=== PATIENT | female | born 1935 | race Caucasian/White ===

== ENCOUNTER 2018-09-01 01:55 | Inpatient (IN) ==
--- NOTE | 2018-09-01 02:28 | Emergency Department Note ---
Disposition Clinical Impression: GI bleed Qualifiers: GI bleed type/associated pathology: unspecified gastrointestinal hemorrhage type Qualified Code(s): K92.2 - Gastrointestinal hemorrhage, unspecified Fall Qualifiers: Encounter type: initial encounter Qualified Code(s): W19.XXXA - Unspecified fall, initial encounter Disposition: Admitted As Inpatient Condition: Good Referrals: NONE,PCP [Primary Care Provider] - Forms: ED Satisfaction Letter General Adult HPI - General Chief complaint: ED Dizziness Stated complaint: lower gi bleed Time Seen by Provider: 09/01/18 01:57 Source: patient, EMS Limitations: no limitations - History of Present Illness Pain Scale: 0 - Related Data Allergies Allergy/AdvReac Type Severity Reaction Status Date / Time No Known Allergies Allergy Verified 02/09/17 22:48 Past Medical History - Past Medical History Medical history: Reports: coronary artery disease, hyperlipidemia, hypertension Psychiatric history: Reports: depression - Social History Smoking Status: Never smoker Smokeless Tobacco Status: No Alcohol use: Reports: none Drug use: Reports: none Physical Exam - General Limitations: no limitations General appearance: alert Course Vital Signs Temperature 97.8 F 09/01/18 02:00 Pulse Rate 71 09/01/18 02:00 Respiratory Rate 18 09/01/18 02:00 Blood Pressure 125/60 09/01/18 02:00 O2 Sat by Pulse Oximetry 100 09/01/18 02:00 Temperature 97.8 F 09/01/18 02:00 Pulse Rate 77 09/01/18 04:16 Respiratory Rate 20 09/01/18 04:16 Blood Pressure 166/76 09/01/18 04:16 O2 Sat by Pulse Oximetry 100 09/01/18 04:16 Oxygen Delivery Oxygen Delivery Room Air Medical Decision Making - Lab Data Result diagrams: 09/01/18 02:19 09/01/18 02:19 Lab Results 09/01/18 09/01/18 09/01/18 Range/Units 02:19 02:19 02:19 WBC 10.9 (4.3-11.1) K/mcL RBC 2.96 L (3.82-4.97) M/mcL Hgb 9.1 L (11.5-15.4) g/dL Hct 27.6 L (35.3-44.9) % MCV 93.2 (83.0-100.0) fL MCH 30.7 (28.0-33.3) pg MCHC 33.0 (31.6-35.5) g/dL RDW 12.9 (11.5-14.5) % Plt Count 230 (140-400) K/mcL MPV 9.5 (9.4-12.4) fL Immature Gran % 0.5 (0-4) % Seg Neutrophils % 72.0 % Lymphocytes % 14.8 % Monocytes % 11.3 % Eosinophils % 0.9 % Basophils % 0.5 % Neutrophils # 7.9 (1.6-8.9) K/mcL Lymphocytes # 1.6 (0.6-4.6) K/mcL Monocytes # 1.2 (0.0-1.3) K/mcL Eosinophils # 0.1 (0.0-0.6) K/mcL Basophils # 0.1 (0.0-0.2) K/mcL PT 12.1 (9.4-12.1) Seconds INR 1.1 APTT 25.7 L (26.0-36.0) Seconds Sodium 136 (136-145) mEq/L Potassium 3.8 (3.5-5.1) mEq/L Chloride 103 (98-107) mEq/L Carbon Dioxide 25 (23-29) mEq/L BUN 27 H (8-23) mg/dL Creatinine 0.85 (0.60-1.20) mg/dL Est GFR ( Amer) > 60 (> 60) Est GFR (Non-Af Amer) > 60 (> 60) BUN/Creatinine Ratio 32 H (6-26) Glucose 136 H (70-105) mg/dL Calculated Osmolality 289 (280-300) Calcium 10.0 (8.6-10.3) mg/dL Stool Occult Blood (Negative) Blood Type Antibody Screen Crossmatch 09/01/18 09/01/18 Range/Units 02:19 02:28 WBC (4.3-11.1) K/mcL RBC (3.82-4.97) M/mcL Hgb (11.5-15.4) g/dL Hct (35.3-44.9) % MCV (83.0-100.0) fL MCH (28.0-33.3) pg MCHC (31.6-35.5) g/dL RDW (11.5-14.5) % Plt Count (140-400) K/mcL MPV (9.4-12.4) fL Immature Gran % (0-4) % Seg Neutrophils % % Lymphocytes % % Monocytes % % Eosinophils % % Basophils % % Neutrophils # (1.6-8.9) K/mcL Lymphocytes # (0.6-4.6) K/mcL Monocytes # (0.0-1.3) K/mcL Eosinophils # (0.0-0.6) K/mcL Basophils # (0.0-0.2) K/mcL PT (9.4-12.1) Seconds INR APTT (26.0-36.0) Seconds Sodium (136-145) mEq/L Potassium (3.5-5.1) mEq/L Chloride (98-107) mEq/L Carbon Dioxide (23-29) mEq/L BUN (8-23) mg/dL Creatinine (0.60-1.20) mg/dL Est GFR ( Amer) (> 60) Est GFR (Non-Af Amer) (> 60) BUN/Creatinine Ratio (6-26) Glucose (70-105) mg/dL Calculated Osmolality (280-300) Calcium (8.6-10.3) mg/dL Stool Occult Blood Positive A (Negative) Blood Type O POSITIVE Antibody Screen NEGATIVE Crossmatch See Detail Attestation Statement - Attestation Attestation: For this encounter, I have reviewed the MANAGER OF INVESTIGATIONS or PA documentation, treatment plan, and medical decision making; and I have had face to face time with this patient. [id number] time provided 03:55: I was alerted that the patient developed substernal chest pain. She has a history of coronary artery disease with 4 stents deployed in 2011. She appears uncomfortable on exam. Repeat ECG obtained showing dynamic interval changes from previous with diffuse ST segment depression suggestive of ischemia. Call placed to the wireless store manager on-call 04:12: The case was discussed with Dr. Eugene Kc the wireless store manager on [employer]. She recommended transfusing of packed red blood cells with concern for demand ischemia and stated urgent PCI is not indicated. The patient will be admitted to the medicine service
[2018-09-01 02:31] LABS: Basophils # 0.1 K/mcL (0.0-0.2); Basophils % 0.5 %; Eosinophils # 0.1 K/mcL (0.0-0.6); Eosinophils % 0.9 %; Hematocrit 27.6 % (35.3-44.9); Hemoglobin 9.1 g/dL (11.5-15.4); Immature Granulocytes % 0.5 % (0-4); Lymphocytes # 1.6 K/mcL (0.6-4.6); Lymphocytes % 14.8 %; Mean Corpuscular Hemoglobin 30.7 pg (28.0-33.3); Mean Corpuscular Volume 93.2 fL (83.0-100.0); Mean Platelet Volume 9.5 fL (9.4-12.4); Monocytes # 1.2 K/mcL (0.0-1.3); Monocytes % 11.3 %; Neutrophils # 7.9 K/mcL (1.6-8.9); Platelet Count 230 K/mcL (140-400); Red Blood Count 2.96 M/mcL (3.82-4.97); Red Cell Distribution Width 12.9 % (11.5-14.5)
[2018-09-01 02:38] LABS: INR 1.1; Prothrombin Time 12.1 Seconds (9.4-12.1)
[2018-09-01 02:41] LABS: Activated Partial Thrombo Time 25.7 Seconds (26.0-36.0)
[2018-09-01] MEDS ORDERED: *HR* FentaNYL (PF) 100 MCG/2 ML VIAL IVP ONE (02:45)
--- NOTE | 2018-09-01 02:48 | Emergency Department Note ---
Disposition Clinical Impression: GI bleed Qualifiers: GI bleed type/associated pathology: unspecified gastrointestinal hemorrhage type Qualified Code(s): K92.2 - Gastrointestinal hemorrhage, unspecified Fall Qualifiers: Encounter type: initial encounter Qualified Code(s): W19.XXXA - Unspecified fall, initial encounter Disposition: Admitted As Inpatient Condition: Good Referrals: NONE,PCP [Primary Care Provider] - Forms: ED Satisfaction Letter GI Bleed HPI - General Chief complaint: ED GI Bleed Stated complaint: lower gi bleed Time Seen by Provider: 09/01/18 01:57 Source: patient, EMS Mode of arrival: private vehicle Limitations: no limitations Nursing Notes Reviewed: Yes Vital Signs Reviewed: Yes - History of Present Illness HPI Narrative: 82-year-old female presents emergency department for evaluation of possible GI bleed. Patient states over the last months she has had intermittent lower abdominal pain that has been crampy in nature. Tonight patient states she had a bowel movement and she noticed that it was loose, black, and had a weird smell. She states she stood up and got dizzy, she states she regained her balance and she was ambulating through the house to get a cup to get a sample she became dizzy again and she spelled forward, she states she had her head on the ground, she denies losing consciousness. She was able to get herself up. She called her family who then called EMS. Patient states only history is a TIA and cervical radiculopathy from a fall last year. She has had 4 stents previously because of an OH in 2011. She denies ever having a bowel movement like this before. She denies anticoagulation use, she is on aspirin. She states that this time she feels fine, she does not have any abdominal pain or anything. Family with her states over the last few months patient has "slow down". She has been taking more naps but they have not noticed any change in mentation, no weight disturbances, no color change, no other issues. Denies drug use, history of the same, liver problems, GI problems. She states "I have been very healthy ra". 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 Denies: nausea, vomiting, epistaxis, fever, chills, headaches, loss of appetite, malaise, easy bruising, rash, other bleeding source, shortness of breath, weakness Treatments Prior to Arrival: none - Related Data Allergies Allergy/AdvReac Type Severity Reaction Status Date / Time No Known Allergies Allergy Verified 02/09/17 22:48 All systems ED: reviewed and negative except as stated. Review of Systems: As Per HPI Constitutional: Denies: fever, chills Eyes: Denies: vision change ENT ED: Denies: ear pain, congestion Cardiovascular: Denies: chest pain, palpitations Respiratory: Denies: cough, dyspnea, wheezes, hemoptysis Gastrointestinal: Reports: abdominal pain, diarrhea, melena. Denies: nausea, vomiting, constipation, hematemesis Genitourinary: Denies: urgency, dysuria Musculoskeletal: Denies: back pain, neck pain Integumentary: Denies: rash Neurological: Denies: headache, weakness, numbness, paresthesias, confusion, abnormal gait Hematological/Lymphatic: Denies: easy bleeding, easy bruising, lymphadenopathy Past Medical History - Past Medical History Attestation: Yes The following information was validated with the patient. Source: patient Medical history: Reports: coronary artery disease, hyperlipidemia, hypertension Psychiatric history: Reports: depression - Social History Smoking Status: Never smoker Smokeless Tobacco Status: No Alcohol use: Reports: none Drug use: Reports: none Physical Exam - General Limitations: no limitations General appearance: alert, in no apparent distress - Head Head exam: atraumatic, normocephalic, normal inspection - Eye Eye exam: Present: normal appearance, PERRL, EOMI - ENT ENT exam: mucous membranes moist - Neck Neck exam: Present: normal inspection, full ROM, trachea midline - Chest Chest inspection: Present: normal inspection, symmetric chest wall rise - Respiratory Respiratory exam: Present: normal lung sounds bilaterally - Cardiovascular Cardiovascular exam: Present: regular rate, normal rhythm, normal heart sounds - Abdominal Exam Abdominal exam: Present: soft, Non-Tender, normal bowel sounds. Absent: tenderness, distention, guarding, rebound, hypoactive bowel sounds, organomegaly, mass - Extremities Exam Extremities exam: Present: normal inspection, full ROM. Absent: tenderness, pedal edema - Back Exam Back exam: Present: normal inspection, full ROM. Absent: tenderness - Neurological Exam Neurological exam: Present: alert, oriented X3, CN II-XII intact. Absent: motor sensory deficit, reflexes normal - Expanded Neurological Exam Patient oriented to: Present: person, place, time Speech: Present: fluid speech Cerebellar function: normal gait Motor strength - LUE: 5/5 Motor strength - RUE: 5/5 Motor strength - LLE: 5/5 Motor strength - RLE: 5/5 Coma Scale Eye Opening: Spontaneous Coma Scale Motor Response: Obeys Commands Coma Scale Verbal Response: Oriented Coma Scale Total: 15 - Psychiatric Psychiatric exam: Present: normal affect, normal mood - Skin Skin exam: Present: warm, dry, intact, normal color, other (abrasions to forehead/nose from fall) Course Course Narrative: Well-developed female in no acute distress. Respirations are easy and even. Patient is pleasant, GCS 15, examination without focal deficit. She does have an abrasion to her forehead as well as the bridge of her nose. There is no tenderness, step-offs with palpation of the head, neck, spine. She denies pain at this time. Lungs are clear, respirations are easy and even. Heart rate regular rhythm. EKG completed reveals a sinus rhythm with a ventricular weight is 64 beats a minute, NH interval turned 5 ms, QTC 426 milliseconds. Abdomen is soft, nontender. Bowel sounds in all quadrants. No masses, organomegaly palpated. Given syncopal episode patient fall, we will obtain a head CT, we will also get basic labs, type and screen, send stool sample. Patient is agreeable plan of care. - Reevaluation(s) Reevaluation #1: Patient resting quietly. She has been under no acute distress. Vital signs have remained stable, patient is perfusing well. CBC does show that her hemoglobin has dropped 3 points in the last 6 weeks, person to her baseline and this does appear to be low for her, her quite edition panel is unremarkable, metabolic panel is unremarkable. Occult stool does show a positive result. This is most likely lower GI bleed. We did initiate a fluid bolus, we will plan admission. Patient and family agreeable to care. She currently still has her head CT pending, once these results are back we will page the hospitalist for admission. Reevaluation #2: Head CT returns on acute abnormality. There is been no further episodes of loose stools since before arrival. Physical exam is unchanged. Patient remains neurologically intact with a GCS of 15, nonfocal. Patient and family notified of all results, they continue to be agreeable to admission to the hospital. We will page hospitalist at this time. Time: 03:39 Reevaluation #3: Patient resting quietly, and around 3:45 AM she started having severe and sudden sharp chest pain radiating into her jaw and arm, she states it is a band around her body. Repeat EKG reveals a sinus rhythm however there is significant dynamic changes in EKG. Pt appears uncomfortable. History of OH and stents previously, we will troponins, page interventional cardiology due to the EKG changes. Time: 04:08 Additional Reevaluation(s): 0440 I did speak with patient and her family, agreeable to transfusion of PRBCs, agreement continues for admission to the hospital. Patient currently is chest pain-free, she states she does have a dull headache, we will give some Tylenol. Patient is no longer diaphoretic, she is laughing and joking with her family. She states she feels considerably better now than what she did half hour ago. We will continue to monitor. Spoke with hospitalist Dr. Robison, case was presented with him as well as the interventional his solutions architect's recommendations, he is agreeable to take the patient on the inpatient unit. - Consultations Consultation #1: Spoke with legal activity adjudicator Dr. Franny Kc, case was presented to her with history and findings of EKG changes, Dr. Kc recommended infusing as ischemic changes most likely related to the hemoglobin and the GI bleeding. We did discuss that hemoglobin upon arrival was 9.1, sudden onset chest pain more hours after arrival with EKG changes several hours after arrival, Dr. Kc continues to state to transfuse to correct the ischemia. I did ask and h er and her solutions architect I consulted pinchers of the EKGs to which she replied no. Time: 04:12 Vital Signs Temperature 97.8 F 09/01/18 02:00 Pulse Rate 71 09/01/18 02:00 Respiratory Rate 18 09/01/18 02:00 Blood Pressure 125/60 09/01/18 02:00 O2 Sat by Pulse Oximetry 100 09/01/18 02:00 Temperature 97.8 F 09/01/18 02:00 Pulse Rate 67 09/01/18 03:21 Respiratory Rate 16 09/01/18 03:21 Blood Pressure 117/53 09/01/18 03:21 O2 Sat by Pulse Oximetry 99 09/01/18 03:21 Oxygen Delivery Oxygen Delivery Room Air GI Bleed - Lab Data Result diagrams: 09/01/18 02:19 09/01/18 02:19 Lab Results 09/01/18 09/01/18 09/01/18 Range/Units 02:19 02:19 02:19 WBC 10.9 (4.3-11.1) K/mcL RBC 2.96 L (3.82-4.97) M/mcL Hgb 9.1 L (11.5-15.4) g/dL Hct 27.6 L (35.3-44.9) % MCV 93.2 (83.0-100.0) fL MCH 30.7 (28.0-33.3) pg MCHC 33.0 (31.6-35.5) g/dL RDW 12.9 (11.5-14.5) % Plt Count 230 (140-400) K/mcL MPV 9.5 (9.4-12.4) fL Immature Gran % 0.5 (0-4) % Seg Neutrophils % 72.0 % Lymphocytes % 14.8 % Monocytes % 11.3 % Eosinophils % 0.9 % Basophils % 0.5 % Neutrophils # 7.9 (1.6-8.9) K/mcL Lymphocytes # 1.6 (0.6-4.6) K/mcL Monocytes # 1.2 (0.0-1.3) K/mcL Eosinophils # 0.1 (0.0-0.6) K/mcL Basophils # 0.1 (0.0-0.2) K/mcL PT 12.1 (9.4-12.1) Seconds INR 1.1 APTT 25.7 L (26.0-36.0) Seconds Sodium 136 (136-145) mEq/L Potassium 3.8 (3.5-5.1) mEq/L Chloride 103 (98-107) mEq/L Carbon Dioxide 25 (23-29) mEq/L BUN 27 H (8-23) mg/dL Creatinine 0.85 (0.60-1.20) mg/dL Est GFR ( Amer) > 60 (> 60) Est GFR (Non-Af Amer) > 60 (> 60) BUN/Creatinine Ratio 32 H (6-26) Glucose 136 H (70-105) mg/dL Calculated Osmolality 289 (280-300) Calcium 10.0 (8.6-10.3) mg/dL Stool Occult Blood (Negative) Blood Type Antibody Screen 09/01/18 09/01/18 Range/Units 02:19 02:28 WBC (4.3-11.1) K/mcL RBC (3.82-4.97) M/mcL Hgb (11.5-15.4) g/dL Hct (35.3-44.9) % MCV (83.0-100.0) fL MCH (28.0-33.3) pg MCHC (31.6-35.5) g/dL RDW (11.5-14.5) % Plt Count (140-400) K/mcL MPV (9.4-12.4) fL Immature Gran % (0-4) % Seg Neutrophils % % Lymphocytes % % Monocytes % % Eosinophils % % Basophils % % Neutrophils # (1.6-8.9) K/mcL Lymphocytes # (0.6-4.6) K/mcL Monocytes # (0.0-1.3) K/mcL Eosinophils # (0.0-0.6) K/mcL Basophils # (0.0-0.2) K/mcL PT (9.4-12.1) Seconds INR APTT (26.0-36.0) Seconds Sodium (136-145) mEq/L Potassium (3.5-5.1) mEq/L Chloride (98-107) mEq/L Carbon Dioxide (23-29) mEq/L BUN (8-23) mg/dL Creatinine (0.60-1.20) mg/dL Est GFR ( Amer) (> 60) Est GFR (Non-Af Amer) (> 60) BUN/Creatinine Ratio (6-26) Glucose (70-105) mg/dL Calculated Osmolality (280-300) Calcium (8.6-10.3) mg/dL Stool Occult Blood Positive A (Negative) Blood Type O POSITIVE Antibody Screen NEGATIVE
[2018-09-01 02:50] LABS: BUN/Creatinine Ratio 32 (6-26); Blood Urea Nitrogen 27 mg/dL (8-23); Carbon Dioxide 25 mEq/L (23-29); Chloride 103 mEq/L (98-107); Glucose 136 mg/dL (70-105); Osmolality,Calculated 289 (280-300); Potassium 3.8 mEq/L (3.5-5.1); Sodium 136 mEq/L (136-145); eGFR For Non-African Americans > 60 (> 60)
[2018-09-01] MEDS ORDERED: 0.9 % Sodium Chloride 1,000 ML IVC ONE (03:04)
[2018-09-01 04:35] LABS: Hematocrit 29.9 % (35.3-44.9); Hemoglobin 9.7 g/dL (11.5-15.4)
[2018-09-01] MEDS ORDERED: 0.9 % Sodium Chloride 250 ML ONE (04:48)
[2018-09-01] MEDS ORDERED: Naloxone 0.4 MG/ML INJ IVP PRN (05:50)
[2018-09-01] MEDS ORDERED: Ondansetron 4 MG/2 ML VIAL IVP PRN (07:38)
[2018-09-01] MEDS ORDERED: D5% in Water 1,000 ML IVC PRN (07:39)
[2018-09-01] MEDS ORDERED: *HR* Dextrose 50 % in Water (Syg) 50 ML SYRINGE IVP PRN (07:39)
[2018-09-01] MEDS ORDERED: Dextrose Gel 15 GM/37.5 ML TUBE PO PRN ×2 (07:39)
[2018-09-01] MEDS ORDERED: Isovue-370 500 ML BOTTLE IVP ONE (09:12)
--- NOTE | 2018-09-01 09:18 | Internal Med History&Physical ---
Date of Encounter: 09/01/18 Time of Encounter: 09:10 Internal Medicine - H&P: HPI Chief complaint: dark bowel movement Admitted From: Home Plans for Post Hospital Care: Home History of present illness: Ms. Kuhn is a 82 year old female PMH of HNT, CAD s/p 4 stents about 4 years ago and HLD. Patient presented to the ED due to dark stool per rectum. She reports that last night she had a large BM of dark foul smelling stool. Reports that after the BM she started to feel lightheaded, dizzy and on her way to the kitchen fell and hit her forehead. She denies lost of consciousness. Denies chest pain. Reports having one episode of bilious, non-bloody vomit. Patient also reports chronic umbilical, intermittent 5/10 dull abdominal pain, denies diarrhea or constipation. Patient reported chest pain while in the ED, which was relieved with tylenol. No chest pain reported during my evaluation. Past Med Surg Social Fam HX - Past Medical History Medical history: coronary artery disease, hyperlipidemia, hypertension, TIA Additional medical history: cardiac stens x4 Psychiatric history: depression - Past Surgical History Surgical History: angioplasty/stent Additional surgical history: cardiac stents x4 - Social History Smoking Status: Never smoker Smokeless Tobacco Status: No Alcohol use: none Drug use: none - Family History Sister Hx Family Cardiac Disorders: Yes (CABG) Internal Medicine - H&P: Meds Allergy/AdvReac Type Severity Reaction Status Date / Time No Known Allergies Allergy Verified 02/09/17 22:48 All Systems PM: A 10-system review of systems was performed and is negative for pertinent findings except as documented above in the HPI. - Constitutional Constitutional: falls, no lethargy, no weakness - EENT Eyes: no blurry vision, no pain - Cardiovascular Cardiovascular ROS IM: lightheadedness, no chest pain, no edema, no orthopnea, no palpitations, no paroxysmal nocturnal dyspnea - Respiratory Respiratory: no cough, no hemoptysis - Gastrointestinal Gastrointestinal: loose stools, melena, vomiting, no abdominal pain, no diarrhea, no nausea - Genitourinary Genitourinary: no dysuria, no flank pain, no urinary frequency, no urinary hesitancy - Musculoskeletal Musculoskeletal ROS IM: no muscle cramps, no numbness, no stiffness - Integumentary Integumentary IM: no erythema, no rash - Neurological Neurological ROS: dizziness, weakness, no focal weakness, no lack of coordination - Psychiatric Psychiatric: no homicidal ideation, no hopelessness - Endocrine Endocrine IM: no flushing, no polyphagia, no polyuria - Hematologic/Lymphatic Hematologic/Lymphatic: no lymphadenopathy - Allergic/Immunologic Allergic/Immunologic: no GI upset with certain foods Additional comments: rest of a 10 review of system negative. - Constitutional Vitals: Temp Pulse Resp BP Pulse Ox 98.3 F 64 17 145/68 98 09/01/18 07:54 09/01/18 07:54 09/01/18 07:54 09/01/18 07:54 09/01/18 07:54 Exam: Vitals: Reviewed General: Alert and oriented x4. In no acute distress. Skin: Normal color, no rash, no lesions. HEENT: dry oral mucosa, EOM, pupils equal, round and reactive. Cardiovascular: RRR, normal S1 & S2, no rubs, murmurs or gallops. Lungs: CTA b/l, no wheezes or crackles. Abdomen: Soft, non-tender, no rigidity. Extremities: No deformity, no edema or tenderness, no joint swelling or clubbing. Neurological: Normal cognition and motor skills. Rest of the physical exam is non contributory Internal Med - H&P Results - Labs CBC & Chem 7: 09/01/18 04:24 09/01/18 02:19 Labs: Short CBC 09/01/18 09/01/18 Range/Units 02:19 04:24 WBC 10.9 (4.3-11.1) K/mcL Hgb 9.1 L 9.7 L (11.5-15.4) g/dL Hct 27.6 L 29.9 L (35.3-44.9) % Plt Count 230 (140-400) K/mcL Neutrophils # 7.9 (1.6-8.9) K/mcL BMP 09/01/18 02:19 Sodium 136 Potassium 3.8 Chloride 103 Carbon Dioxide 25 BUN 27 H Creatinine 0.85 Glucose 136 H Calcium 10.0 Cardiac Enzymes 09/01/18 Range/Units 04:24 Troponin I < 0.03 (< 0.04) ng/mL - Impressions ITS Impressions Head CT 09/01/18 02:09 IMPRESSION: No acute intracranial abnormality. Chronic microvascular ischemic and senescent changes. Stable examination. D/ / Bob Finney MD / Bob Finney MD Interpreting Provider: Bob Finney MD - Diagnostic Studies CT scan - head Status: image reviewed by me (unremarkable. ) - Assessment and plan (1) GI bleed Current Visit: Yes Status: Acute Assessment and plan: she reports one episode of dark stool. Plan: NPO Accu-checks Q6HRs plus lispro sliding scale started on Pantoprazole 40mg/IV BID D5/0.45NS @75 mls/hr Ondanzetron 4mg/IV Q6HR PRN for nausea call or contact centre manager surgeon called recommendations appreciated. LFTs Serial CBC Q8HRs cardiology recommended to transfuse 1prbcs due to chest pain on presentation consider transfusing if Hb <7, or Hct <23 or patient becomes symptomatic NG lavage CT abdomen and pelvis with IV contrast. Qualifiers: GI bleed type/associated pathology: unspecified gastrointestinal hemorrhage type Qualified Code(s): K92.2 - Gastrointestinal hemorrhage, unspecified (2) CAD (coronary artery disease) Current Visit: Yes Status: Chronic Assessment and plan: patient reports having 4 stents inserted about 4 years ago. On aspirin and Plavix. Hold medications due to GI bleed. Qualifiers: Coronary Disease-Associated Artery/Lesion type: unspecified vessel or lesion type [place] vs. transplanted heart: unspecified whether [place] or transplanted heart Associated angina: angina presence unspecified Qualified Code(s): I25.10 - Atherosclerotic heart disease of [place] coronary artery without angina pectoris (3) HLD (hyperlipidemia) Current Visit: Yes Status: Chronic Assessment and plan: On statin. Held as patient is NPO. Qualifiers: Hyperlipidemia type: unspecified Qualified Code(s): E78.5 - Hyperlipidemia, unspecified (4) HTN (hypertension) Current Visit: Yes Status: Chronic Assessment and plan: patient reports being on Isosorbide. will resume antihypertensive medication after pharmacy verification. Qualifiers: Hypertension type: unspecified Qualified Code(s): I10 - Essential (primary) hypertension (5) Fall Current Visit: Yes Status: Chronic Assessment and plan: Possible due to orthostatic due to GI bleed. Head CT unremarkable. fall precautions. Qualifiers: Encounter type: initial encounter Qualified Code(s): W19.XXXA - Unspecified fall, initial encounter (6) DVT prophylaxis Current Visit: Yes Status: Chronic Assessment and plan: no chemical dvt prophylaxis due to GI bleed. mechanical DVT prophylaxis. (7) Chest pain Current Visit: Yes Status: Chronic Assessment and plan: atypical chest pain. Plan telemetry monitoring cardiology was consulted from the Ed serial trops nitroglycerin 0.4mg SubL Q5mins X3 for chest pain Qualifiers: Chest pain type: unspecified Qualified Code(s): R07.9 - Chest pain, unspecified - Time Spent With Patient Total time spent is greater than 50% in coordination of care (as documented) at patient's floor/unit and/or counseling patient: Greater than 35 minutes (50)
[2018-09-01] MEDS ORDERED: Nitroglycerin 0.4 MG TAB.SUBL SL PRN (09:28)
--- NOTE | 2018-09-01 09:28 | Cardiology Consult Note ---
Addendum entered and electronically signed by Franny cK MD 09/01/18 13:51: I have personally performed a face to face evaluation on this patient. I have reviewed and agree with the care plan. History and Exam by me shows: Atypical CP in setting of acute GI bleed. No significant EKG changes noted. Reviewed all EKGs performed in ED. Pt has rate dependent LBBB. Previously documented to have LBBB so not new finding. Recommend treatment of GI bleed per primary service. Transfuse to keep Hb near 10. OK to hold Plavix- last stents in 2011. Original Note: Date of Encounter: 09/01/18 Time of Encounter: 08:00 Assessment and Plan (1) Chest pain Current Visit: Yes Status: Chronic Complaint of atypical chest pain in the ED in the setting of GI bleed/anemia. Chest pain is right-sided and is now pain free. EKG reviewed. EKG shows sinus rhythm with left bundle branch block. Patient with known history of left bundle branch block as seen on stress test completed in June last year. This is not a new finding. Troponins are negative. No further cardiac testing recommended at this time. Continue treatment of GI bleed. Please call with questions. Qualifiers: Chest pain type: unspecified Qualified Code(s): R07.9 - Chest pain, unspecified (2) CAD (coronary artery disease) Current Visit: Yes Status: Chronic History of PCI to the LAD and RCA in 2011. Okay to hold Plavix in the setting of GI bleed. Would continue aspirin if able. She is pending colonoscopy today. Continue statin and beta bib. Qualifiers: Coronary Disease-Associated Artery/Lesion type: unspecified vessel or lesion type [place] vs. transplanted heart: unspecified whether [place] or transplanted heart Associated angina: angina presence unspecified Qualified Code(s): I25.10 - Atherosclerotic heart disease of [place] coronary artery without angina pectoris Discussion w patient/family: The assessment and plan as outlined above was discussed with the patient and/or family members who expressed understanding and agreement. All questions were answered. Thank you for involving us in the care of your patient. Please call with any questions. History of Present Illness Consult date: 09/01/18 Requesting physician: Elio Bell Consult reason: Abnormal EKG, chest pain Chief complaint: Black stools History of present illness: Ms. Kuhn is a 82 year old female with PMH significant for CAD s/p PCI in 2011, HTN, HLD, who resented with c/o black stols. While she was being worked up in the ED she developed right sided chest discomfort. He states that she has not had this discomfort before. She was given Tylenol with relief of her pain. Cardiology was consulted due to concern for changes on her EKG. On my exam she is chest pain-free. She denies shortness of breath or palpitations. She denies nausea, vomiting, diaphoresis. Prior to this she states she was active and not having any chest pain. She states she was taking aspirin at home but was unsure about taking Plavix. According to her last cardiology office visit she was still taking Plavix 75 mg daily. Prior studies: Lexiscan nuclear stress test 06/26/2018: Gated EF greater than 70%. ECG nondiagnostic due to baseline left bundle-branch block. Imaging was negative for ischemia or prior infarct. Carotid duplex 06/26/2018: Right and left ICA moderate stenoses, 40-59%. Echocardiogram 06/28/2016: LVEF 60%. Normal LV, RV size and function. Limited study. Valves not assessed. Left heart catheterization 02/16/2012: LAD 99% proximal stenosis and 99% mid stenosis. A drug-eluting stent was placed in the proximal portion and a bare- metal stent placed in the midportion. PTCA was performed to the mid to distal LAD with a postprocedural stenosis of 50%. Circumflex demonstrated a 40% proximal stenosis. There was a 60% stenosis in the proximal first obtuse marginal branch. The right coronary artery demonstrated a 80% proximal stenosis and a 99% mid stenosis. A drug-eluting stent was placed in the proximal and midportion of the right coronary artery. Past Med Surg Social Fam HX - Past Medical History Medical history: coronary artery disease, hyperlipidemia, hypertension, TIA Additional medical history: cardiac stens x4 Psychiatric history: depression - Past Surgical History Surgical History: angioplasty/stent Additional surgical history: cardiac stents x4 - Social History Smoking Status: Never smoker Smokeless Tobacco Status: No Alcohol use: none Drug use: none - Family History Sister Hx Family Cardiac Disorders: Yes (CABG) Medications and Allergies Allergy/AdvReac Type Severity Reaction Status Date / Time No Known Allergies Allergy Verified 02/09/17 22:48 All Systems Review: The remainder of the systems were reviewed and are negative Physical Examination Vital Signs, Last 4 Hours Temp Pulse Resp BP Pulse Ox 09/01/18 07:54 98.3 F 64 17 145/68 98 General: Conversant, No Apparent Distress HEENT: Atraumatic, Normocephaly, Mucus Membranes Moist Neck: No JVD, Normal carotid pulses Cardiac: Reg Rate and Rhythm, Normal S1 and S2, No Murmur Lungs: Normal Breath Sounds, No Wheeze, Rales, Rhonchi Neuro: Alert and responsive, No focal deficits noted Abdomen: Soft, Non-Tender Skin: No rashes noted on visualized skin Musculoskeletal: No Chest Wall Tenderness Extremities: No Clubbing, No Cyanosis, No Edema, Normal Pulses Results 09/01/18 04:24 09/01/18 02:19 Lab Results 09/01/18 09/01/18 09/01/18 02:19 02:19 02:19 WBC 10.9 Hgb 9.1 L Hct 27.6 L Plt Count 230 INR 1.1 APTT 25.7 L Sodium 136 Potassium 3.8 Chloride 103 Carbon Dioxide 25 BUN 27 H Creatinine 0.85 Glucose 136 H Calcium 10.0 Troponin I 09/01/18 09/01/18 04:24 04:24 WBC Hgb 9.7 L Hct 29.9 L Plt Count INR APTT Sodium Potassium Chloride Carbon Dioxide BUN Creatinine Glucose Calcium Troponin I < 0.03 - Imaging and Cardiology Stress Test: report reviewed Echo: report reviewed - EKG Interpretation EKG results cardiology: personally reviewed Consult Discharge Plan - Plan Referrals: NONE,PCP [Primary Care Provider] -
[2018-09-01 10:05] LABS: Basophils # 0.1 K/mcL (0.0-0.2); Basophils % 0.4 %; Eosinophils # 0.1 K/mcL (0.0-0.6); Eosinophils % 0.8 %; Hematocrit 31.2 % (35.3-44.9); Hemoglobin 10.5 g/dL (11.5-15.4); Immature Granulocytes % 0.3 % (0-4); Lymphocytes # 2.5 K/mcL (0.6-4.6); Lymphocytes % 20.8 %; Mean Corpuscular HGB Conc 33.7 g/dL (31.6-35.5); Mean Corpuscular Hemoglobin 30.8 pg (28.0-33.3); Mean Corpuscular Volume 91.5 fL (83.0-100.0); Mean Platelet Volume 9.7 fL (9.4-12.4); Monocytes # 1.3 K/mcL (0.0-1.3); Neutrophils # 7.9 K/mcL (1.6-8.9); Platelet Count 189 K/mcL (140-400); Red Blood Count 3.41 M/mcL (3.82-4.97); Segmented Neutrophils % 66.7 %
[2018-09-01 10:17] LABS: Albumin 3.1 g/dL (3.5-5.7); Albumin/Globulin Ratio 1.4 (1.1-2.2); Bilirubin,Direct 0.1 mg/dL (0.0-0.2); Bilirubin,Indirect 0.3 mg/dL (0.0-1.2); Bilirubin,Total 0.4 mg/dL (0.3-1.0); Globulin 2.2 g/dL (2.4-3.5); Total Protein 5.3 g/dL (6.4-8.9)
[2018-09-01] MEDS: D5% in 0.45% NACL 1,000 ML IVC SCH (10:24)
[2018-09-01 14:14] LABS: Bilirubin,Urine Negative (Negative); Blood,Urine Negative (Negative); Clarity,Urine Cloudy (Clear); Color,Urine Yellow (Yellow); Glucose,Urine (UA) Normal (Normal); Ketones,Urine Negative (Negative); Leukocyte Esterase,Urine Small (Negative); Nitrite,Urine Negative (Negative); Protein,Urine Negative (Neg-Trace); Specific Gravity,Urine 1.024 (1.010-1.025); Urobilinogen,Urine Normal (Normal)
[2018-09-01 14:22] LABS: Bacteria,Urine Many per hpf (None-Few); Hyaline Casts,Urine None Seen per lpf (None-Few); RBC,Urine 0-3 per hpf (0-3); Squamous Epithelial Cell,Urine Many per lpf (None-Few)
[2018-09-01] MEDS: Insulin LISPRO 300 UNITS/3 ML VIAL SQ SCH ×2 (14:59→17:22)
[2018-09-01 17:49] LABS: Basophils # 0.1 K/mcL (0.0-0.2); Basophils % 0.6 %; Eosinophils # 0.1 K/mcL (0.0-0.6); Eosinophils % 1.2 %; Hematocrit 33.2 % (35.3-44.9); Hemoglobin 11.3 g/dL (11.5-15.4); Immature Granulocytes % 0.3 % (0-4); Lymphocytes # 2.3 K/mcL (0.6-4.6); Lymphocytes % 22.9 %; Mean Corpuscular Hemoglobin 31.3 pg (28.0-33.3); Mean Platelet Volume 9.6 fL (9.4-12.4); Monocytes % 9.3 %; Neutrophils # 6.7 K/mcL (1.6-8.9); Platelet Count 214 K/mcL (140-400); Red Blood Count 3.61 M/mcL (3.82-4.97); Red Cell Distribution Width 13.2 % (11.5-14.5); Segmented Neutrophils % 65.7 %
[2018-09-01] MEDS: Pantoprazole 40 MG VIAL IVP SCH (17:54)
[2018-09-02] MEDS: Insulin LISPRO 300 UNITS/3 ML VIAL SQ SCH ×2 (00:03→06:11)
[2018-09-02] MEDS: Pantoprazole 40 MG VIAL IVP SCH ×2 (06:10→18:26)
[2018-09-02] MEDS: D5% in 0.45% NACL 1,000 ML IVC SCH (06:11)
[2018-09-02] MEDS ORDERED: *HR* Midazolam HCl 5 MG/5 ML VIAL IVP ONE (10:05)
[2018-09-02] MEDS ORDERED: *HR* FentaNYL (PF) 100 MCG/2 ML VIAL ONE (10:05)
[2018-09-02] MEDS ORDERED: Simethicone 40 MG/0.6 ML MLS IR ONE (10:35)
[2018-09-02] MEDS ORDERED: *HR* FentaNYL (PF) 100 MCG/2 ML VIAL IVP ONE (10:35)
--- NOTE | 2018-09-02 10:35 | Pre-Sedation Evaluation ---
Pre-sedation evaluation - Pre-sedation checklist Date of procedure: 09/02/18 Procedure: double Recent Vitals: Last Vital Signs Temp 98.3 F 09/02/18 10:24 Pulse 70 09/02/18 10:32 Resp 18 09/02/18 10:32 BP 164/78 09/02/18 10:32 Pulse Ox 98 09/02/18 10:32 H&P (including ROS) documented in medical record: Yes Previous reaction to sedatives/anesthetics: No Dietary Status: NPO after Midnight Dentition: dentures removed ASA Classification *see protocol: CLASS III-Severe systemic disease Plan of Care: Pt appropriate candidate for procedure/moderate/conscious sedation, Risks/benefits of procedure/sedation discussed w/ patient/family
[2018-09-02] MEDS: Tetracaine/Benzocaine/Butamben 1 SPRAY AEROSOL MM ONE (10:45)
[2018-09-02] MEDS: *HR* Midazolam HCl 5 MG/5 ML VIAL IVP ONE ×3 (10:45→11:19)
[2018-09-02] MEDS ORDERED: 0.9 % Sodium Chloride 1,000 ML IVC SCH (11:45)
--- NOTE | 2018-09-02 13:51 | General Surgery Consult Note ---
Date of Encounter: 09/01/18 Time of Encounter: 16:30 Assessment and Plan (1) GI bleed Current Visit: Yes Status: Acute 82F with LGIB causing hemodynamic symptoms; NPO IVF bowel prep EGD, colonosocpy on 09/02 trend h/h hold antiplatelets Qualifiers: GI bleed type/associated pathology: unspecified gastrointestinal hemorrhage type Qualified Code(s): K92.2 - Gastrointestinal hemorrhage, unspecified History of Present Illness Consult date: 09/02/18 Reason for consult: other (LGIB) History of present illness: 82F CAD s/p 4 stents about 4 years ago and HLD, currently on plavix who presetns with dark stool per rectum. She reports that last night she had a large BM of dark foul smelling stool. Afterwards she reports feeling lightheaded, dizzy and on her way to the kitchen fell and hit her forehead. She denies lost of consciousness. Denies chest pain. When questioned further she does report multip le episodes of dark, tarry stools. No significant family history of colon cancer. No changes in bowel habits nor caliber. No reports of unexplained weight loss or exhaustion. She has never had a prior colonoscopy. Past Med Surg Social Fam HX - Past Medical History Medical history: coronary artery disease, hyperlipidemia, hypertension, TIA Additional medical history: cardiac stens x4 Psychiatric history: depression - Past Surgical History Surgical History: angioplasty/stent Additional surgical history: cardiac stents x4 - Social History Smoking Status: Never smoker Smokeless Tobacco Status: No Alcohol use: none Drug use: none - Family History Sister Hx Family Cardiac Disorders: Yes (CABG) Medications and Allergies Atorvastatin [Lipitor] 80 mg PO DAILY 09/02/18 [History] Citalopram [CeleXA] 40 mg PO DAILY 09/02/18 [History] Clopidogrel [Plavix] 75 mg PO DAILY 09/02/18 [History] Isosorbide MONOnitrate (24 HR) [Imdur] 30 mg PO DAILY 09/02/18 [History] Metoprolol Tartrate [Lopressor] 25 mg PO BID 09/02/18 [History] Allergy/AdvReac Type Severity Reaction Status Date / Time No Known Allergies Allergy Verified 02/09/17 22:48 Review of Systems All systems PM: 12 point ROS negative besides HPI findings General Surgery Exam Initial Vital Signs Temp Pulse Resp BP Pulse Ox 97.8 F 71 18 125/60 100 09/01/18 02:00 09/01/18 02:00 09/01/18 02:00 09/01/18 02:00 09/01/18 02:00 - General physical appearance well nourished, no distress - Eyes normal ocular movement - ENT normal mucosa, no hearing loss, normocephalic - Neck no masses - Respiratory normal expansion, normal respiratory effort - Cardiovascular Cardiovascular exam: Present: RRR - Abdomen Abdomen general surgery: Present: soft, non tender - Integumentary Integumentary general surgery: Present: warm and dry, no abnormal pigmentation - Neurologic Present: CN 2-12 grossly intact - Musculoskeletal Present: normal posture - Psychiatric Psychiatric general surgery: Present: A&Ox3 Exam Initial Vital Signs Temp Pulse Resp BP Pulse Ox 97.8 F 71 18 125/60 100 09/01/18 02:00 09/01/18 02:00 09/01/18 02:00 09/01/18 02:00 09/01/18 02:00 Results - Labs 09/01/18 17:26 09/01/18 02:19 Abnormal lab results RBC 3.61 M/mcL (3.82-4.97) L 09/01/18 17:26 Hgb 11.3 g/dL (11.5-15.4) L 09/01/18 17:26 Hct 33.2 % (35.3-44.9) L 09/01/18 17:26 APTT 25.7 Seconds (26.0-36.0) L 09/01/18 02:19 BUN 27 mg/dL (8-23) H 09/01/18 02:19 BUN/Creatinine Ratio 32 (6-26) H 09/01/18 02:19 Glucose 136 mg/dL (70-105) H 09/01/18 02:19 Serum Total Protein 5.3 g/dL (6.4-8.9) L 09/01/18 09:42 Albumin 3.1 g/dL (3.5-5.7) L 09/01/18 09:42 Globulin 2.2 g/dL (2.4-3.5) L 09/01/18 09:42 Urine Clarity Cloudy (Clear) A 09/01/18 13:34 Ur Leukocyte Esterase Small (Negative) H 09/01/18 13:34 Urine Microscopic WBC 5-15 per hpf (0-3) H 09/01/18 13:34 Ur Squamous Epith Cells Many per lpf (None-Few) H 09/01/18 13:34 Urine Bacteria Many per hpf (None-Few) H 09/01/18 13:34 Stool Occult Blood Positive (Negative) A 09/01/18 02:28 All other labs normal. - Imaging CT scan - abdomen: report reviewed, image reviewed CT scan - pelvis: report reviewed, image reviewed Consult Discharge Plan - Plan Referrals: NONE,PCP [Primary Care Provider] -
--- NOTE | 2018-09-02 13:55 | General Surgery Progress Note ---
Date of Encounter: 09/02/18 Time of Encounter: 08:00 - Assessment and Plan (1) GI bleed Current Visit: Yes Status: Acute 82F with LGIB s/p EGD and colonoscopy; found to have sigmoid polyp, diverticulosis, and a bleeding mass in the cecum; unable to remove completely; biopsies pending diet as tolerated cardiac clearance/risk stratification will plan for surgical intervention this week, ideally after final pathology returns for sigmoid polyp Qualifiers: GI bleed type/associated pathology: unspecified gastrointestinal hemorrhage type Qualified Code(s): K92.2 - Gastrointestinal hemorrhage, unspecified Subjective Patient reports: no new complaints, afebrile Objective Vital Signs - Last 8 Hours Temp Pulse Resp BP Pulse Ox 09/02/18 13:05 97.4 F L 59 16 145/64 99 09/02/18 12:37 97.7 F 64 16 132/58 97 09/02/18 11:42 74 18 157/86 98 09/02/18 11:37 80 16 176/87 97 09/02/18 11:32 68 18 159/54 100 09/02/18 11:27 70 16 169/71 100 09/02/18 11:22 76 18 165/78 98 09/02/18 11:17 75 16 174/72 100 09/02/18 11:12 87 16 138/51 100 09/02/18 11:07 75 18 145/76 100 09/02/18 11:02 75 16 128/69 99 09/02/18 10:57 93 16 176/87 95 09/02/18 10:52 83 16 186/70 95 09/02/18 10:47 87 18 167/85 97 09/02/18 10:42 86 16 174/78 98 09/02/18 10:37 86 16 176/86 98 09/02/18 10:32 70 18 164/78 98 09/02/18 10:24 98.3 F 71 18 184/79 99 09/02/18 07:13 98.6 F 76 16 126/63 97 Intake and Output 09/01/18 09/02/18 09/02/18 23:59 07:59 15:59 Intake Total 1000 / 1000 550 / 550 Output Total 600 / 600 225 / 225 Balance -600 / -600 775 / 775 550 / 550 Intake: IV Fluids 1000 / 1000 550 / 550 0.9 % Sodium Chloride 1,000 ML 550 / 550 @ 50 mls/hr IVC .Q20H JESSICA Rx#: [id number] D5% And 0.45% Nacl 1000 Ml Bag 1000 / 1000 1,000 ML @ 50 mls/hr IVC .Q20H JESSICA Rx#:[id number] Output: Urine 600 / 600 225 / 225 Other: Stool Size Small Stool Consistency loose liquid Stool Color Bright Red Blood Bright Red Blood Dark Red Blood Weight 41.5 kg Blood Glucose* 120 106 Patient Weight 09/02/18 23:59 Weight 41.5 kg - General physical appearance no distress - Respiratory normal expansion - Cardiovascular Cardiovascular exam: Present: RRR - Abdomen Abdomen: Present: soft, non tender - Integumentary no rash - Neurologic CN 2-12 grossly intact - Psychiatric oriented to time, oriented to person, oriented to place - Labs 09/01/18 17:26 09/01/18 02:19 - VTE Documentation of Mechanical Device: Intermittent pneumatic compression device Consult Discharge Plan - Plan Referrals: NONE,PCP [Primary Care Provider] -
[2018-09-02 14:34] LABS: Hematocrit 34.4 % (35.3-44.9); Hemoglobin 11.3 g/dL (11.5-15.4)
--- NOTE | 2018-09-02 15:46 | Electrocardiograph Report ---
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
--- NOTE | 2018-09-02 15:47 | Electrocardiograph Report ---
[place] [address] Test Date: 2018-09-01 Pat Name: Polina Kuhn Department: EXAM15 Room: 2A Gender: F Second Operator: : 1935 Requested By: Mabel Doss Order Number: [id number] Reading MD: José Luis Alcantar Measurements Intervals [place] Rate: 80 P: 83 [place]: 183 QRS: 5 QRSD: 129 T: 25 QT: 416 QTc: 480 Interpretive Statements Sinus rhythm Left bundle branch block Electronically Signed On 09-02-2018 15:45:52 EST by José Luis Alcantar
--- NOTE | 2018-09-02 15:47 | Electrocardiograph Report ---
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
--- NOTE | 2018-09-02 18:21 | Internal Med Progress Note ---
Hospitalist Progress Note - Encounter Date of Encounter: 09/02/18 Time of Encounter: 15:00 - Subjective Interval History: SUBJECTIVE: The patient feels good. She had upper and lower endoscopy today. Complains of mild abdominal pain in lower quadrants. Without nausea or vomiting. Denies chest pain. Denies difficulty breathing, coughing and wheezing. She has normal urination. OBJECTIVE: Skin: Free of rash and discoloration. ENMT: Oral/pharyngeal mucosa is normal in appearance. Eyes: Sclera is white. There is no discharge from eyes. Respiratory: Normal breath sounds; no crackles or wheezes. CV: Heart is regular; no gallop or murmur. GI: Abdomen is soft and mildly tender in lower quadrants. There is no palpable mass or visceromegaly. Neuro: There is no focal deficits. ADDITIONAL DATA: Your blood testing from yesterday was okay. ASSESSMENT AND PLAN: GI bleeding/colonic mass in cecum. See notes from general surgery. The patient will likely undergo partial colon resection this week, after getting clearance from cardiology. Meanwhile, I decided to stop her Plavix. We are waiting for results from biopsies. Coronary artery disease. Seems to be stable. To continue Lopressor with Lipitor and Imdur. I put her Plavix on hold today. Hypertension/hyperlipidemia. Stable/controlled. To continue Lopressor and Lipitor. - Exam Vitals: Temp Pulse Resp BP Pulse Ox 97.4 F L 75 18 136/80 98 09/02/18 13:05 09/02/18 15:30 09/02/18 15:30 09/02/18 15:30 09/02/18 15:30 Exam: xx - Assessment and Plan (1) GI bleed Current Visit: Yes Status: Acute (2) Colonic mass Current Visit: Yes Status: Acute (3) CAD (coronary artery disease) Current Visit: Yes Status: Chronic (4) HTN (hypertension) Current Visit: Yes Status: Chronic (5) HLD (hyperlipidemia) Current Visit: Yes Status: Chronic - Time Spent with Patient Total time spent is greater than 50% in coordination of care (as documented) at patient's floor/unit and/or counseling patient: 25 - 35 minutes Plan of Care Discussed with: patient Internal Medicine: Result - Labs CBC & Chem 7: 09/02/18 14:14 09/01/18 02:19 Labs: Short CBC 09/02/18 Range/Units 14:14 Hgb 11.3 L (11.5-15.4) g/dL Hct 34.4 L (35.3-44.9) % - ABG Interpretation ABG results: PT/INR, D-dimer PT 12.1 Seconds (9.4-12.1) 09/01/18 02:19 - Impressions Impressions Abdomen/Pelvis CT 09/01/18 09:12 IMPRESSION: 2.4 centimeter possible mass within the cecum. 1.2 centimeter lymph node in the ileocecal mesentery. 5 centimeter left adnexal cyst. RECOMMENDATIONS: Gastroenterology consultation. Nonemergent pelvic ultrasound. D/ / 09/01/2018 15:50:19 Michael Palmer MD / Liza Matta Interpreting Provider: Michael Palmer MD - VTE Documentation of Mechanical Device: Intermittent pneumatic compression device Consult Discharge Plan - Plan Referrals: NONE,PCP [Primary Care Provider] - (1) GI bleed Qualifiers: GI bleed type/associated pathology: unspecified gastrointestinal hemorrhage type Qualified Code(s): K92.2 - Gastrointestinal hemorrhage, unspecified (3) CAD (coronary artery disease) Qualifiers: Coronary Disease-Associated Artery/Lesion type: [place] artery [place] vs. transplanted heart: [place] heart Associated angina: without angina Qualified Code(s): I25.10 - Atherosclerotic heart disease of [place] coronary artery without angina pectoris (4) HTN (hypertension) Qualifiers: Hypertension type: unspecified Qualified Code(s): I10 - Essential (primary) hypertension (5) HLD (hyperlipidemia) Qualifiers: Hyperlipidemia type: unspecified Qualified Code(s): E78.5 - Hyperlipidemia, unspecified
[2018-09-03] MEDS: D5% in 0.45% NACL 1,000 ML IVC SCH (05:05)
[2018-09-03] MEDS: Pantoprazole 40 MG VIAL IVP SCH ×2 (05:05→17:06)
[2018-09-03] MEDS ORDERED: Lidocaine -MPF 1% 5 ML AMPUL INFILT ONE (08:16)
[2018-09-03] MEDS: Isosorbide MONOnitrate (24 HR) 30 MG TAB.ER.24H PO SCH (08:47)
--- NOTE | 2018-09-03 09:28 | General Surgery Progress Note ---
Date of Encounter: 09/03/18 Time of Encounter: 09:27 - Assessment and Plan (1) GI bleed Current Visit: Yes Status: Acute 82F with LGIB s/p EGD and colonoscopy; found to have sigmoid polyp, diverticulosis, and a bleeding mass in the cecum; unable to remove completely; biopsies pending diet as tolerated cardiac clearance/risk stratification will plan for surgical intervention this week (most likely or Monday due to scheduling), ideally after final pathology returns for sigmoid polyp order cea order cxr Qualifiers: GI bleed type/associated pathology: unspecified gastrointestinal hemorrhage type Qualified Code(s): K92.2 - Gastrointestinal hemorrhage, unspecified Subjective Patient reports: no new complaints, feels better, bowel movement, blood in stool, afebrile Objective Vital Signs - Last 8 Hours Temp Pulse Resp BP Pulse Ox 09/03/18 07:17 98.2 F 68 18 155/69 97 09/03/18 03:55 98.6 F 69 18 171/69 99 Intake and Output 09/02/18 09/03/18 09/03/18 23:59 07:59 15:59 Intake Total 1000 / 1000 Output Total 200 / 200 500 / 500 Balance -200 / -200 500 / 500 Intake: IV Fluids 1000 / 1000 D5% And 0.45% Nacl 1000 Ml Bag 1000 / 1000 1,000 ML @ 50 mls/hr IVC .Q20H JESSICA Rx#:[id number] Output: Urine 200 / 200 500 / 500 Other: Stool Size Moderate Stool Consistency liquid soft Stool Color Black Dark Red Blood # Voids 1 Weight 53.1 kg Blood Glucose* 113 Patient Weight 09/03/18 23:59 Weight 53.1 kg - General physical appearance no distress - Eyes normal ocular movement - ENT normocephalic - Respiratory normal expansion, normal respiratory effort - Cardiovascular Cardiovascular exam: Present: RRR - Abdomen Abdomen: Present: soft, non tender - Integumentary no rash - Neurologic CN 2-12 grossly intact - Musculoskeletal normal posture - Psychiatric oriented to time, oriented to person, oriented to place - Labs 09/02/18 14:14 09/01/18 02:19 - VTE Documentation of Mechanical Device: Intermittent pneumatic compression device Consult Discharge Plan - Plan Referrals: NONE,PCP [Primary Care Provider] -
[2018-09-03 09:38] LABS: BUN/Creatinine Ratio 9 (6-26); Blood Urea Nitrogen 8 mg/dL (8-23); Calcium 9.7 mg/dL (8.6-10.3); Carbon Dioxide 26 mEq/L (23-29); Chloride 106 mEq/L (98-107); Glucose 130 mg/dL (70-105); Magnesium 1.8 mg/dL (1.6-2.6); Osmolality,Calculated 284 (280-300); Phosphorous 2.4 mg/dL (2.7-4.5); Sodium 137 mEq/L (136-145); eGFR For Non-African Americans > 60 (> 60)
[2018-09-03 10:02] LABS: Carcinoembryonic Antigen 1.9 ng/mL (Less than 5.0)
--- NOTE | 2018-09-03 10:51 | Cardiology Progress Note ---
Date of Encounter: 09/03/18 Time of Encounter: 10:44 Assessment and Plan (1) Pre-operative cardiovascular examination Current Visit: Yes Status: Acute Pre-operative risk assessment prior to surgery for cecal mass. History of CAD with PCI to LAD in 2011. Recent testing: Stress test 06/2018- Negative for ischemia or infarct. Gated EF 70%. TTE 2016- preserved EF. No significant valvular disease. Atypical CP described in ED with GI bleed. Troponin negative. EKG with SR with LBBB, not new. Prior to this event she was able to complete 4 mets of activity without cardiac symptoms. She was found to have bleeding cecal mass requiring surgical intervention. Patient is intermediate risk for procedure. No further cardiac testing warranted at this time. Recommend statin and bb fani-operatively and asa if able from surgery standpoint. Okay to discontinue plavix from cardiology standpoint. Call with questions. (2) Chest pain Current Visit: Yes Status: Chronic Complaint of atypical chest pain in the ED in the setting of GI bleed/anemia. Chest pain is right-sided and is now pain free. EKG reviewed. EKG shows sinus rhythm with left bundle branch block. Patient with known history of left bundle branch block as seen on stress test completed in June last year. This is not a new finding. Troponins are negative. Stress test 06/2018 negative for ischemia or infarct. No further cardiac testing recommended at this time. Continue treatment of GI bleed. Qualifiers: Chest pain type: unspecified Qualified Code(s): R07.9 - Chest pain, unspecified (3) CAD (coronary artery disease) Current Visit: Yes Status: Chronic History of PCI to the LAD and RCA in 2011. Okay to hold Plavix in the setting of GI bleed. Would continue aspirin if able. She is pending colonoscopy today. Continue statin and beta bib. Qualifiers: Coronary Disease-Associated Artery/Lesion type: [place] artery [place] vs. t ransplanted heart: [place] heart Associated angina: without angina Qualified Code(s): I25.10 - Atherosclerotic heart disease of [place] coronary artery without angina pectoris Discussion w patient/family: The assessment and plan as outlined above was discussed with the patient and/or family members who expressed understanding and agreement. All questions were answered. Thank you for involving us in the care of your patient. Please call with any questions. Subjective Principal diagnosis: cecal mass Interval history: Cardiology asked to evaluate patient prior to surgery for pre-operative risk assessment. We were previously asked to see patient this admission for abnormal EKG. After further review patient was seen to have rate dependent LBBB and this was not a new finding. She did describe atypical chest pain in the ED. C/o right chest wall pain in relation to abdominal pain and black stools. Pain resolved and no further testing recommended. Troponin was negative. Objective Vital Signs, Last 4 Hours Temp Pulse Resp BP Pulse Ox 09/03/18 07:17 98.2 F 68 18 155/69 97 Results 09/02/18 14:14 09/03/18 08:55 Lab Results 09/02/18 09/03/18 14:14 08:55 Hgb 11.3 L Hct 34.4 L Sodium 137 Potassium 4.0 Chloride 106 Carbon Dioxide 26 BUN 8 Creatinine 0.88 Glucose 130 H Calcium 9.7 Magnesium 1.8 - Imaging and Cardiology Echo: report reviewed - EKG Interpretation EKG results cardiology: personally reviewed - VTE Documentation of Mechanical Device: Intermittent pneumatic compression device Consult Discharge Plan - Plan Referrals: NONE,PCP [Primary Care Provider] -
[2018-09-03] MEDS ORDERED: D10% in Water 500 ML IVC PRN (12:58)
[2018-09-03] MEDS ORDERED: Clinimix E 5%-15% SOLUTION 2,000 ML, Parenteral Amino Acid 10% 0 ML with MVI, adult wi... IVC SCH (17:00)
--- NOTE | 2018-09-03 22:21 | Internal Med Progress Note ---
Hospitalist Progress Note - Encounter Date of Encounter: 09/03/18 Time of Encounter: 15:00 - Subjective Interval History: SUBJECTIVE: The patient feels fine. Denies chest pain and difficulty breathing. Denies coughing and wheezing. Denies abdominal pain, nausea and vomiting. She has normal urination. OBJECTIVE: Skin: Free of rash and discoloration. ENMT: Oral/pharyngeal mucosa is normal in appearance. Eyes: Sclera is white. There is no discharge from eyes. Respiratory: Normal breath sounds; no crackles or wheezes. CV: Heart is regular; no gallop or murmur. GI: Abdomen is soft and mildly tender in lower quadrants. There is no palpable mass or visceromegaly. Neuro: There is no focal deficits. ADDITIONAL DATA: Biochemistry panel shows normal electrolytes. Creatinine is 0.88. Magnesium is 1.8. ASSESSMENT AND PLAN: GI bleeding/colonic mass in cecum. See notes from general surgery. The patient is cleared by cardiology for the surgery (intermediate risk). Awaiting the biopsies results. Coronary artery disease. Seems to be stable. To continue Lopressor with Lipitor and Imdur. Her Plavix is on hold. We will put her on aspirin, if it is okay from surgery. Hypertension/hyperlipidemia. Stable/controlled. To continue Lopressor and Lipitor. - Exam Vitals: Temp Pulse Resp BP Pulse Ox 98.8 F 65 16 132/52 96 09/03/18 20:33 09/03/18 20:33 09/03/18 20:33 09/03/18 20:33 09/03/18 20:33 Exam: xx - Assessment and Plan (1) GI bleed Current Visit: Yes Status: Acute (2) Colonic mass Current Visit: Yes Status: Acute (3) CAD (coronary artery disease) Current Visit: Yes Status: Chronic (4) HTN (hypertension) Current Visit: Yes Status: Chronic (5) HLD (hyperlipidemia) Current Visit: Yes Status: Chronic - Time Spent with Patient Total time spent is greater than 50% in coordination of care (as documented) at patient's floor/unit and/or counseling patient: 25 - 35 minutes Plan of Care Discussed with: patient Internal Medicine: Result - Labs CBC & Chem 7: 09/02/18 14:14 09/03/18 08:55 Labs: BMP 09/03/18 08:55 Sodium 137 Potassium 4.0 Chloride 106 Carbon Dioxide 26 BUN 8 Creatinine 0.88 Glucose 130 H Calcium 9.7 - ABG Interpretation ABG results: PT/INR, D-dimer PT 12.1 Seconds (9.4-12.1) 09/01/18 02:19 - Impressions Impressions Chest X-Ray 09/03/18 09:30 IMPRESSION: No acute disease. D/ / Chrissie Wright Cha, MD / Chrissie Wright Cha, MD Interpreting Provider: Chrissie Wright Cha, MD - VTE Documentation of Mechanical Device: Intermittent pneumatic compression device Consult Discharge Plan - Plan Referrals: Charles Horn MD [Partnered Physician] - (Follow up will Determine after Surgery Monday) NONE,PCP [Primary Care Provider] - (Follow up will determine after surgery ) (1) GI bleed Qualifiers: GI bleed type/associated pathology: unspecified gastrointestinal hemorrhage type Qualified Code(s): K92.2 - Gastrointestinal hemorrhage, unspecified (3) CAD (coronary artery disease) Qualifiers: Coronary Disease-Associated Artery/Lesion type: [place] artery [place] vs. transplanted heart: [place] heart Associated angina: without angina Qualified Code(s): I25.10 - Atherosclerotic heart disease of [place] coronary artery without angina pectoris (4) HTN (hypertension) Qualifiers: Hypertension type: unspecified Qualified Code(s): I10 - Essential (primary) hypertension (5) HLD (hyperlipidemia) Qualifiers: Hyperlipidemia type: unspecified Qualified Code(s): E78.5 - Hyperlipidemia, unspecified
[2018-09-04] MEDS: Pantoprazole 40 MG VIAL IVP SCH (05:14)
[2018-09-04 05:41] LABS: Basophils # 0.1 K/mcL (0.0-0.2); Basophils % 0.9 %; Eosinophils # 0.3 K/mcL (0.0-0.6); Eosinophils % 4.2 %; Hematocrit 28.5 % (35.3-44.9); Immature Granulocytes % 0.3 % (0-4); Lymphocytes # 2.1 K/mcL (0.6-4.6); Lymphocytes % 27.8 %; Mean Corpuscular Hemoglobin 30.8 pg (28.0-33.3); Mean Corpuscular Volume 93.4 fL (83.0-100.0); Mean Platelet Volume 9.9 fL (9.4-12.4); Monocytes # 0.9 K/mcL (0.0-1.3); Neutrophils # 4.2 K/mcL (1.6-8.9); Platelet Count 196 K/mcL (140-400); Red Blood Count 3.05 M/mcL (3.82-4.97); Segmented Neutrophils % 54.8 %
[2018-09-04 05:43] LABS: Hemoglobin 9.4 g/dL (11.5-15.4)
[2018-09-04 06:03] LABS: BUN/Creatinine Ratio 12 (6-26); Blood Urea Nitrogen 11 mg/dL (8-23); Calcium 9.5 mg/dL (8.6-10.3); Carbon Dioxide 27 mEq/L (23-29); Chloride 108 mEq/L (98-107); Glucose 98 mg/dL (70-105); Magnesium 1.9 mg/dL (1.6-2.6); Osmolality,Calculated 289 (280-300); Phosphorous 2.6 mg/dL (2.7-4.5); Potassium 3.7 mEq/L (3.5-5.1); Sodium 140 mEq/L (136-145); eGFR For Non-African Americans 57 (> 60)
[2018-09-04] MEDS: Isosorbide MONOnitrate (24 HR) 30 MG TAB.ER.24H PO SCH (09:08)
[2018-09-04] MEDS ORDERED: D10% in Water 500 ML IVC PRN ×2 (12:10→13:50)
--- NOTE | 2018-09-04 13:08 | Internal Med Progress Note ---
Hospitalist Progress Note - Encounter Date of Encounter: 09/04/18 Time of Encounter: 10:15 - Subjective Interval History: Hospital course reviewed. Patient with history of CAD, hypertension was admitted for lower bleeding GI tract. She was found to have bleeding cecal mass on colonoscopy on 09/02. Denies any further episodes of melena, hematochezia, or BRBPR. No chest pain, SOB, or lightheadedness. Tentatively planned for surgery on 09/06. - Exam Vitals: Temp Pulse Resp BP Pulse Ox 98.4 F 58 18 134/55 97 09/04/18 12:28 09/04/18 12:28 09/04/18 12:28 09/04/18 12:28 09/04/18 12:28 Exam: xxGeneral: Alert and oriented, not in acute distress. Cardiovascular:Normal S1 & S2, No JVD. Pulse regular. Lungs: clear to auscultation, no wheezes/rales Abdomen:Soft, minimal RLQ tenderness without rebound/guarding Extremities:No deformity or swelling Neurological:Normal cognition and motor skills. Non-focal - Assessment and Plan (1) GI bleed Current Visit: Yes Status: Acute Assessment and Plan: Likely due to bleeding cecal mass seen on colonoscopy on 09/02 Hb 9.4 today, denies any further episodes of melena or hematochezia plavix on hold path report pending tentatively scheduled for OR on 09/06 will decrease PPI to daily continue to monitor Hb appreciate surgery input (2) Colonic mass Current Visit: Yes Status: Acute Assessment and Plan: as above (3) CAD (coronary artery disease) Current Visit: Yes Status: Chronic Assessment and Plan: patient reports having 4 stents inserted about 4 years ago. On plavix as outpatient, hold for now cardiology input appreciated, will resume ASA post-op continue bb, imdur, statin (4) HLD (hyperlipidemia) Current Visit: Yes Status: Chronic Assessment and Plan: On statin. (5) HTN (hypertension) Current Visit: Yes Status: Chronic Assessment and Plan: continue home meds DVT Prophylaxis: EPCD - Time Spent with Patient Total time spent is greater than 50% in coordination of care (as documented) at patient's floor/unit and/or counseling patient: Plan of Care Discussed with: patient Internal Medicine: Result - Labs CBC & Chem 7: 09/04/18 05:09 09/04/18 05:09 Labs: Short CBC 09/04/18 Range/Units 05:09 WBC 7.7 (4.3-11.1) K/mcL Hgb 9.4 L D (11.5-15.4) g/dL Hct 28.5 L (35.3-44.9) % Plt Count 196 (140-400) K/mcL Neutrophils # 4.2 (1.6-8.9) K/mcL BMP 09/04/18 05:09 Sodium 140 Potassium 3.7 Chloride 108 H Carbon Dioxide 27 BUN 11 Creatinine 0.93 Glucose 98 Calcium 9.5 - ABG Interpretation ABG results: PT/INR, D-dimer PT 12.1 Seconds (9.4-12.1) 09/01/18 02:19 - Impressions Impressions Chest X-Ray 09/03/18 09:30 IMPRESSION: No acute disease. D/ / Chrissie Wright Cha, MD / Chrissie Wright Cha, MD Interpreting Provider: Chrissie Wright Cha, MD - VTE Documentation of Mechanical Device: Intermittent pneumatic compression device Consult Discharge Plan - Plan Referrals: Charles Horn MD [Partnered Physician] - (Follow up will Determine after Surgery Monday) NONE,PCP [Primary Care Provider] - (Follow up will determine after surgery ) _ (1) GI bleed Qualifiers: GI bleed type/associated pathology: unspecified gastrointestinal hemorrhage type Qualified Code(s): K92.2 - Gastrointestinal hemorrhage, unspecified (3) CAD (coronary artery disease) Qualifiers: Coronary Disease-Associated Artery/Lesion type: [place] artery [place] vs. transplanted heart: [place] heart Associated angina: without angina Qualified Code(s): I25.10 - Atherosclerotic heart disease of [place] coronary artery without angina pectoris (4) HLD (hyperlipidemia) Qualifiers: Hyperlipidemia type: unspecified Qualified Code(s): E78.5 - Hyperlipidemia, unspecified (5) HTN (hypertension) Qualifiers: Hypertension type: unspecified Qualified Code(s): I10 - Essential (primary) hypertension
[2018-09-04] MEDS ORDERED: metroNIDAZOLE 500 MG TABLET PO SCH (14:00)
[2018-09-04] MEDS ORDERED: Clinimix E 5%-15% SOLUTION 2,000 ML with MVI, adult with vitamin K 10 ML IVC SCH (17:00)
[2018-09-05 05:11] LABS: Hematocrit 26.1 % (35.3-44.9); Hemoglobin 8.8 g/dL (11.5-15.4)
[2018-09-05 05:13] LABS: VBG Ionized Calcium 1.26 mmol/L (1.15-1.35)
[2018-09-05 05:26] LABS: BUN/Creatinine Ratio 14 (6-26); Blood Urea Nitrogen 11 mg/dL (8-23); Carbon Dioxide 26 mEq/L (23-29); Chloride 108 mEq/L (98-107); Glucose 123 mg/dL (70-105); Magnesium 1.8 mg/dL (1.6-2.6); Osmolality,Calculated 289 (280-300); Phosphorous 3.2 mg/dL (2.7-4.5); Potassium 3.4 mEq/L (3.5-5.1); Sodium 139 mEq/L (136-145); eGFR For Non-African Americans > 60 (> 60)
[2018-09-05] MEDS ORDERED: Pantoprazole 40 MG VIAL IVP SCH (09:00)
--- NOTE | 2018-09-05 09:46 | General Surgery Progress Note ---
Date of Encounter: 09/05/18 Time of Encounter: 09:43 - Assessment and Plan (1) GI bleed Current Visit: Yes Status: Acute 82F with LGIB s/p EGD and colonoscopy; found to have sigmoid polyp, diverticulosis, and a bleeding mass in the cecum; unable to remove completely; biopsies pending; CLD bowel prep NPO at midnight IVF at midnight type and screen for 1 unit ancef, flagyl personnel technician to OR for tomorrow OR tomorrow; Qualifiers: GI bleed type/associated pathology: unspecified gastrointestinal hemorrhage type Qualified Code(s): K92.2 - Gastrointestinal hemorrhage, unspecified Subjective Patient reports: no new complaints, afebrile Objective Vital Signs - Last 8 Hours Temp Pulse Resp BP Pulse Ox 09/05/18 08:25 98.5 F 70 20 144/68 98 09/05/18 02:58 98.1 F 72 19 168/68 97 Intake and Output 09/04/18 09/05/18 09/05/18 23:59 07:59 15:59 Intake Total 250 / 250 Output Total 1000 / 1000 Balance -750 / -750 Intake: IV Fluids 250 / 250 Intralipid 20% 250 ML @ 21 mls/ 250 / 250 hr IVPB DAILY@1700 [facility] Rx#: [id number] Output: Urine 1000 / 1000 Other: Blood Glucose* 119 121 106 - General physical appearance no distress - Respiratory normal expansion, normal respiratory effort - Cardiovascular Cardiovascular exam: Present: RRR - Abdomen Abdomen: Present: soft, non tender - Integumentary no rash - Neurologic CN 2-12 grossly intact - Musculoskeletal normal posture - Psychiatric oriented to time, oriented to person, oriented to place - Labs 09/05/18 04:00 09/05/18 04:50 Diabetes panel 09/05/18 Range/Units 04:50 Sodium 139 (136-145) mEq/L Potassium 3.4 L (3.5-5.1) mEq/L Chloride 108 H (98-107) mEq/L Carbon Dioxide 26 (23-29) mEq/L BUN 11 (8-23) mg/dL Creatinine 0.76 (0.60-1.20) mg/dL Glucose 123 H (70-105) mg/dL Calcium 9.0 (8.6-10.3) mg/dL Calcium panel 09/05/18 Range/Units 04:50 Calcium 9.0 (8.6-10.3) mg/dL Phosphorus 3.2 (2.7-4.5) mg/dL Pituitary panel 09/05/18 Range/Units 04:50 Sodium 139 (136-145) mEq/L Potassium 3.4 L (3.5-5.1) mEq/L Chloride 108 H (98-107) mEq/L Carbon Dioxide 26 (23-29) mEq/L BUN 11 (8-23) mg/dL Creatinine 0.76 (0.60-1.20) mg/dL Glucose 123 H (70-105) mg/dL Calcium 9.0 (8.6-10.3) mg/dL Adrenal panel 09/05/18 Range/Units 04:50 Sodium 139 (136-145) mEq/L Potassium 3.4 L (3.5-5.1) mEq/L Chloride 108 H (98-107) mEq/L Carbon Dioxide 26 (23-29) mEq/L BUN 11 (8-23) mg/dL Creatinine 0.76 (0.60-1.20) mg/dL Glucose 123 H (70-105) mg/dL Calcium 9.0 (8.6-10.3) mg/dL - VTE Documentation of Mechanical Device: Intermittent pneumatic compression device Consult Discharge Plan - Plan Referrals: Charles Horn MD [Partnered Physician] - (Follow up will Determine after Surgery Monday) NONE,PCP [Primary Care Provider] - (Follow up will determine after surgery )
[2018-09-05] MEDS: Isosorbide MONOnitrate (24 HR) 30 MG TAB.ER.24H PO SCH (10:16)
--- NOTE | 2018-09-05 11:17 | Internal Med Progress Note ---
Hospitalist Progress Note - Encounter Date of Encounter: 09/05/18 Time of Encounter: 08:15 - Subjective Interval History: No episodes of melena, hematochezia, or BRBPR. No chest pain, SOB, or lightheadedness. started on TPN yesterday and planned for OR tomorrow. - Exam Vitals: Temp Pulse Resp BP Pulse Ox 98.5 F 70 20 144/68 98 09/05/18 08:25 09/05/18 08:25 09/05/18 08:25 09/05/18 08:25 09/05/18 08:25 Exam: xxGeneral: Alert and oriented, not in acute distress. Cardiovascular:Normal S1 & S2, No JVD. Pulse regular. Lungs: clear to auscultation, no wheezes/rales Abdomen:Soft, minimal RLQ tenderness without rebound/guarding Extremities:No deformity or swelling Neurological:Normal cognition and motor skills. Non-focal - Assessment and Plan (1) GI bleed Current Visit: Yes Status: Acute Assessment and Plan: Likely due to bleeding cecal mass seen on colonoscopy on 09/02 Hb 8.8 today, denies any further episodes of melena or hematochezia plavix on hold path for cecal mass: no evidence of malignancy. Sigmoid polyp turned out to be tubular adenoma CEA normal continue PPI daily OR tomorrow, appreciate surgery input (2) Colonic mass Current Visit: Yes Status: Acute Assessment and Plan: as above (3) CAD (coronary artery disease) Current Visit: Yes Status: Chronic Assessment and Plan: patient reports having 4 stents inserted about 4 years ago. On plavix as outpatient, hold for now cardiology input appreciated, will resume ASA post-op continue bb, imdur, statin (4) HLD (hyperlipidemia) Current Visit: Yes Status: Chronic Assessment and Plan: On statin. (5) HTN (hypertension) Current Visit: Yes Status: Chronic Assessment and Plan: continue home meds DVT Prophylaxis: EPCD - Time Spent with Patient Total time spent is greater than 50% in coordination of care (as documented) at patient's floor/unit and/or counseling patient: Plan of Care Discussed with: patient Internal Medicine: Result - Labs CBC & Chem 7: 09/05/18 04:00 09/05/18 04:50 Labs: Short CBC 09/05/18 Range/Units 04:00 Hgb 8.8 L (11.5-15.4) g/dL Hct 26.1 L (35.3-44.9) % BMP 09/05/18 04:50 Sodium 139 Potassium 3.4 L Chloride 108 H Carbon Dioxide 26 BUN 11 Creatinine 0.76 Glucose 123 H Calcium 9.0 - ABG Interpretation ABG results: PT/INR, D-dimer PT 12.1 Seconds (9.4-12.1) 09/01/18 02:19 - VTE Documentation of Mechanical Device: Intermittent pneumatic compression device Consult Discharge Plan - Plan Referrals: Charles Horn MD [Partnered Physician] - 09/14/18 10:15 am (Please follow up as schedule...) NONE,PCP [Primary Care Provider] - () (1) GI bleed Qualifiers: GI bleed type/associated pathology: unspecified gastrointestinal hemorrhage type Qualified Code(s): K92.2 - Gastrointestinal hemorrhage, unspecified (3) CAD (coronary artery disease) Qualifiers: Coronary Disease-Associated Artery/Lesion type: [place] artery [place] vs. transplanted heart: [place] heart Associated angina: without angina Qualified Code(s): I25.10 - Atherosclerotic heart disease of [place] coronary artery without angina pectoris (4) HLD (hyperlipidemia) Qualifiers: Hyperlipidemia type: unspecified Qualified Code(s): E78.5 - Hyperlipidemia, unspecified (5) HTN (hypertension) Qualifiers: Hypertension type: unspecified Qualified Code(s): I10 - Essential (primary) hypertension
[2018-09-05] MEDS: metroNIDAZOLE 500 MG TABLET PO SCH ×3 (14:30→21:12)
[2018-09-05] MEDS ORDERED: Clinimix E 5%-15% SOLUTION 2,000 ML with MVI, adult with vitamin K 10 ML IVC SCH (17:00)
--- NOTE | 2018-09-05 18:18 | Anesthesia Evaluation PreOp ---
Date of Encounter: 09/05/18 Time of Encounter: 18:16 - Past History Planned Operation: Lap R hemicolectomy poss open Cardiac History: HTN, Hyperlipidemia, Cardiac Stent (CAD s/p stents x 4) Pulmonary History: Denies Any Significant HX SOLAR INSTALLATION SUPERVISOR History: Denies Any Significant HX Other Medical History: Other (anemia, colon mass) Anesthesia History: Past Anesthesia Alcohol Use: none Drug use: none Medications and Allergies Atorvastatin [Lipitor] 80 mg PO HS 09/02/18 [History] Citalopram [CeleXA] 40 mg PO DAILY 09/02/18 [History] Clopidogrel [Plavix] 75 mg PO DAILY 09/02/18 [History] Isosorbide MONOnitrate (24 HR) [Imdur] 30 mg PO DAILY 09/02/18 [History] Metoprolol Tartrate [Lopressor] 25 mg PO BID 09/02/18 [History] Allergy/AdvReac Type Severity Reaction Status Date / Time No Known Allergies Allergy Verified 02/09/17 22:48 - Meds/Allergy Pre-op Review Medications Reviewed: Yes Allergies Reviewed: Yes Beta Blockers on Current Med List: Yes If Beta Blockers taken, Date/Time (Last Dose taken): 09/05 1016am Anesthesia Results - Labs 09/05/18 04:00 09/05/18 04:50 - Imaging EKG: report reviewed (Sinus rhythm Left bundle branch block Electronically Signed On 09-02-2018 15:45:52 EST by José Luis Alcantar) Additional studies: Lexiscan nuclear stress test 06/26/2018: Gated EF greater than 70%. ECG nondiagnostic due to baseline left bundle-branch block. Imaging was negative for ischemia or prior infarct. Carotid duplex 06/26/2018: Right and left ICA moderate stenoses, 40-59%. Echocardiogram 06/28/2016: LVEF 60%. Normal LV, RV size and function. Limited study. Valves not assessed. Left heart catheterization 02/16/2012: LAD 99% proximal stenosis and 99% mid stenosis. A drug-eluting stent was placed in the proximal portion and a bare- metal stent placed in the midportion. PTCA was performed to the mid to distal LAD with a postprocedural stenosis of 50%. Circumflex demonstrated a 40% proximal stenosis. There was a 60% stenosis in the proximal first obtuse marginal branch. The right coronary artery demonstrated a 80% proximal stenosis and a 99% mid stenosis. A drug-eluting stent was placed in the proximal and midportion of the right coronary artery. Anesthesia Exam Vital Signs/O2 Sat, Most Current Temp Pulse Resp BP Pulse Ox 98.7 F 75 20 158/65 98 09/05/18 16:34 09/05/18 16:34 09/05/18 16:34 09/05/18 16:34 09/05/18 16:34 Weight: 52kg NPO (# of Hours): >8 - HEENT Pupil (Motor): Pupils equal, EOMI Mallampati: I Teeth: Edentulous Denture Type: Upper: Complete, Lower: Complete Oral Opening: Greater than 3 - SOLAR INSTALLATION SUPERVISOR LOC: Oriented SOLAR INSTALLATION SUPERVISOR Motor: Normal RUE, Normal LUE, Normal RLE, Normal LLE, Normal Face [employer]AR INSTALLATION SUPERVISOR Sensory: Normal: RUE, LUE, RLE, LLE, Face - Cardiac Rhythm: Regular - Pulmonary Breath Sounds: bilateral Clear Respiratory Effort: Symmetrical Anesthesia Assess/Plan ASA Score: 3 Level of consciousness: Cooperative Anesthetic Plan: General Monitoring Plan: Standard Monitors Recovery Plan: PACU
[2018-09-06 05:10] LABS: Hematocrit 32.7 % (35.3-44.9)
[2018-09-06 05:11] LABS: Hemoglobin 10.6 g/dL (11.5-15.4)
[2018-09-06 05:22] LABS: Prothrombin Time 11.5 Seconds (9.4-12.1)
[2018-09-06 05:34] LABS: BUN/Creatinine Ratio 18 (6-26); Blood Urea Nitrogen 14 mg/dL (8-23); Calcium 9.6 mg/dL (8.6-10.3); Carbon Dioxide 23 mEq/L (23-29); Chloride 107 mEq/L (98-107); Glucose 93 mg/dL (70-105); Osmolality,Calculated 282 (280-300); Phosphorous 2.9 mg/dL (2.7-4.5); Potassium 3.8 mEq/L (3.5-5.1); Sodium 136 mEq/L (136-145); eGFR For Non-African Americans > 60 (> 60)
[2018-09-06] MEDS ORDERED: *HR* Rocuronium Bromide 50 MG/5 ML VIAL ONE (07:09)
[2018-09-06] MEDS ORDERED: *HR* FentaNYL (PF) 100 MCG/2 ML VIAL ONE (07:09)
[2018-09-06] MEDS ORDERED: Ondansetron 4 MG/2 ML VIAL ONE (07:09)
[2018-09-06] MEDS ORDERED: Lidocaine -MPF 2% 2 ML VIAL ONE (07:09)
[2018-09-06] MEDS ORDERED: *HR* Propofol 200 MG/20 ML VIAL IVP ONE (07:09)
[2018-09-06] MEDS ORDERED: Neostigmine Methylsulfate 3 MG/3 ML SYRINGE ONE (07:09)
[2018-09-06] MEDS ORDERED: Dexamethasone 4 MG/ML VIAL ONE (07:09)
[2018-09-06] MEDS ORDERED: Lidocaine -MPF 4% 5 ML AMPUL ONE (07:09)
[2018-09-06] MEDS: Ringers Solution, Lactated 1,000 ML IVC SCH ×2 (07:15→10:08)
[2018-09-06] MEDS ORDERED: EPHEDrine 50 MG/ML VIAL ONE (08:15)
[2018-09-06] MEDS ORDERED: CefOXitin 2,000 MG VIAL ONE (08:28)
[2018-09-06] MEDS ORDERED: cefOXitin 2,000 MG in Water for inj. (sterile) 20 ML 20 ML IVP ONE (08:28)
[2018-09-06] MEDS ORDERED: *HR* HYDROMORPHONE 2 MG/ML VIAL ONE (10:28)
[2018-09-06] MEDS ORDERED: *HR* FentaNYL (PF) 100 MCG/2 ML VIAL IVP PRN (10:33)
[2018-09-06] MEDS ORDERED: *HR* OxyCODONE Immed Rel 5 MG TABLET PO PRN (10:33)
--- NOTE | 2018-09-06 11:23 | General Surgery Progress Note ---
Date of Encounter: 09/06/18 Time of Encounter: : - Assessment and Plan (1) GI bleed Current Visit: Yes Status: Acute 82F with LGIB 2/2 bleeding mass in the cecum unresectable on colonoscopy, concerning for malignancy; now s/p laparosocpic right hemicolectomy d/c loera if still in place after recovery sips of clears (300 qshift, non sweetened, non carbonated) activity as tolerated 5mg oxy for pain q6hrs; cont with TPN awaiting pathology PT/OT Qualifiers: GI bleed type/associated pathology: unspecified gastrointestinal hemorrhage type Qualified Code(s): K92.2 - Gastrointestinal hemorrhage, unspecified Subjective Patient reports: no new complaints Objective Vital Signs - Last 8 Hours Temp Pulse Resp BP Pulse Ox 09/06/18 11:12 74 14 113/49 95 09/06/18 11:02 73 12 117/48 97 09/06/18 10:52 98.1 F 80 16 118/50 96 09/06/18 04:26 97.6 F 72 17 126/62 94 Intake and Output 09/05/18 09/06/18 09/06/18 23:59 07:59 15:59 Intake Total 30 / 30 250 / 250 1000 / 1000 Output Total 210 / 210 Balance 30 / 30 250 / 250 790 / 790 Intake: IV Fluids 250 / 250 1000 / 1000 Lactated Ringers 1,000 ML @ 25 1000 / 1000 mls/hr IVC .Q24H [facility] Rx#: [id number] Intralipid 20% 250 ML @ 21 mls/ 250 / 250 hr IVPB DAILY@1700 [facility] Rx#: [id number] Oral 30 / 30 Output: Estimated Blood Loss 10 / 10 Urine Amount (Catheter) 200 / 200 Other: Weight 53 kg Blood Glucose* 125 112 Patient Weight 09/06/18 23:59 Weight 53 kg - General physical appearance no distress - Respiratory normal expansion, normal respiratory effort - Cardiovascular Cardiovascular exam: Present: RRR - Abdomen Abdomen: Present: soft, tender (appropriately tender) - Incision Incision: Present: clean and dry, intact - Neurologic CN 2-12 grossly intact - Musculoskeletal normal posture - Psychiatric oriented to time, oriented to person, oriented to place - Labs 09/06/18 04:50 09/06/18 04:50 Diabetes panel 09/06/18 Range/Units 04:50 Sodium 136 (136-145) mEq/L Potassium 3.8 (3.5-5.1) mEq/L Chloride 107 (98-107) mEq/L Carbon Dioxide 23 (23-29) mEq/L BUN 14 (8-23) mg/dL Creatinine 0.78 (0.60-1.20) mg/dL Glucose 93 (70-105) mg/dL Calcium 9.6 (8.6-10.3) mg/dL Calcium panel 09/06/18 Range/Units 04:50 Calcium 9.6 (8.6-10.3) mg/dL Phosphorus 2.9 (2.7-4.5) mg/dL Pituitary panel 09/06/18 Range/Units 04:50 Sodium 136 (136-145) mEq/L Potassium 3.8 (3.5-5.1) mEq/L Chloride 107 (98-107) mEq/L Carbon Dioxide 23 (23-29) mEq/L BUN 14 (8-23) mg/dL Creatinine 0.78 (0.60-1.20) mg/dL Glucose 93 (70-105) mg/dL Calcium 9.6 (8.6-10.3) mg/dL Adrenal panel 09/06/18 Range/Units 04:50 Sodium 136 (136-145) mEq/L Potassium 3.8 (3.5-5.1) mEq/L Chloride 107 (98-107) mEq/L Carbon Dioxide 23 (23-29) mEq/L BUN 14 (8-23) mg/dL Creatinine 0.78 (0.60-1.20) mg/dL Glucose 93 (70-105) mg/dL Calcium 9.6 (8.6-10.3) mg/dL - VTE Documentation of Mechanical Device: Intermittent pneumatic compression device Consult Discharge Plan - Plan Referrals: Charles Horn MD [Partnered Physician] - 09/14/18 10:15 am (Please follow up as schedule...) NONE,PCP [Primary Care Provider] - ()
--- NOTE | 2018-09-06 11:33 | Anesthesia Evaluation Post Op ---
Date of Encounter: 09/06/18 Time of Encounter: 11:28 - Vital Signs Vital Signs: Vital Signs/O2 Sat/Glucose, Most Recent Temp Pulse Resp BP Pulse Ox 97.2 F L 77 12 125/56 96 09/06/18 11:22 09/06/18 11:22 09/06/18 11:22 09/06/18 11:22 09/06/18 11:22 Blood Glucose* 112 - Lungs Lungs: Clear Ascult./Percussion - Airway Airway: Non-obstructed - Cardiovascular Regular Rate - Mental Status Mental Status: Alert & Oriented, Answers Appropriately - Pain Pain Scale: 0 Pain Scale used: Numeric (1 - 10) - Nausea Vomiting Nausea Vomiting: Not Present - Hydration Hydration: Ice chips, Gross catheter Notes: 09/06/18 11:32 AAOx3,VSS with no complaints - Discharge PostOp Status: Transfer Patient to floor
--- NOTE | 2018-09-06 11:38 | Operative Note ---
Date of procedure: 09/06/18 Pre-op diagnosis: bleeding cecal mass Post-op diagnosis: same Procedure: laparoscopic right hemicolectomy Implants: none Complications: none Anesthesia: GETA Local Anesthetics: 0.5% Sensorcaine HCL SubQ (cc) Surgeon: Sen Underwood Was there an hearing aid assistant present: No Estimated blood loss (cc): 20 Specimen: right colon Condition: stable Disposition: PACU Procedure in Detail: The patient was brought into the operating room suite. The patient was placed in the supine position. Mechanical DVT prophylaxis was initiated. The patient underwent smooth induction of general endotracheal anesthesia. The patient was prepped and draped in the usual fashion. Preoperative antibiotics were given. A timeout was held identifying the correct patient, pathology, and procedure. Everyone was in agreement and we began a procedure. Incision to Lateral mobilization I started bycreating a supraumbilical incision and via open Quesada technique entered into the abdomen. I then inserted the 12 trocar followed by the camera to visualize the intraabdominal cavity. I then created a 5 mm incision suprapubically and inserted the 5 mm trocar under direct visualization. Roughly 1 handbreadth lateral to the umbilical incision on the left and right side I created 5 mm incisions and inserted 5 mm trocars under direct visualization. I then grasped the cecum with the nacho instrument and used electocautery to begin to mobilize along the white line of toldt. using blunt and sharp dissection I was able to mobilize the entirety of the ascending colong. Medial and superior mobilization I then retracted the cecum towards the lateral abdominal wall to put the vascular pedicle under slight tension. I then created a mesenteric window and used the vascular stapler to staple across the pedicle smoothly. I then used blunt dissection to separate the retroperitoneum from the mesentery. I was able to clearly visualize the duodenum so that I can avoid injuring it. I was able to dissect up to the hepatic flexure. I then separate the proximal transverse colon all the way to the hepatic flexure from their attachments. Once I was able to visualize the duodenum and part of the pancreas I was comfortable with my mobilization. Extraction to Closure I then extended the supraumbilical incision to allow for retraction of the cecum. I then stapled distally on the transverse colon. The staple line and remaining bowel was pink and viable. I then stapled proximally across the terminal ileum. The proximal staple line and bowel were pink and viable. I then used the ligasure to ligate the mesentery before removing the specimen from the field. I then cut the stapled ends of the small and large bowl limbs, inserted the blue loaded stapler to create a side to side anastamosis. I then used the TA stapler to close the end. It should be stated that I did not completely staple the very end of the bowel, leaving a connection that could leak so I stapled again with the TA stapler and used lembert sutures to imbricate the staple line on both ends. I was comfortable with my anastamosis as both sides were pink and viable, the entirety of the bowel was closed/stapled across. I then used the vicryl suture for my crotch stitch. I then replaced the bowel back into the abdomen, changed gloves, then closed the fascia with 1-0 PDS in an interrupted figure of eight fashion x 5. I then closed all skin incisions with a 4-0 monocryl (running subcuticular for the umbilical incision, interrupted for the remaining 5mm incisions. I then sealed the incisions with dermabond. The patient tolerated the procedure well and was escorted to PACU in stable condiiton.
[2018-09-06] MEDS ORDERED: Nitroglycerin 0.4 MG TAB.SUBL SL PRN (11:42)
[2018-09-06] MEDS ORDERED: *HR* Dextrose 50 % in Water (Syg) 50 ML SYRINGE IVP PRN (11:42)
[2018-09-06] MEDS ORDERED: Ondansetron 4 MG/2 ML VIAL IVP PRN (11:42)
[2018-09-06] MEDS ORDERED: D10% in Water 500 ML IVC PRN (11:42)
[2018-09-06] MEDS ORDERED: Naloxone 0.4 MG/ML INJ IVP PRN (11:42)
[2018-09-06] MEDS ORDERED: Clinimix E 5%-15% SOLUTION 2,000 ML with MVI, adult with vitamin K 10 ML IVC SCH ×3 (11:42→17:00)
[2018-09-06] MEDS ORDERED: Dextrose Gel 15 GM/37.5 ML TUBE PO PRN ×2 (11:42)
[2018-09-06] MEDS ORDERED: D5% in Water 1,000 ML IVC PRN (11:42)
--- NOTE | 2018-09-06 13:10 | Internal Med Progress Note ---
Hospitalist Progress Note - Encounter Date of Encounter: 09/06/18 Time of Encounter: 12:30 - Subjective Interval History: Underwent up early this morning and seen postoperatively. Family at bedside. PAtient remains somnolent from anesthetic agents but appears to be comfortable. Vitals reviewed, stable. Hemoglobin also improved to 10.6 this morning. - Exam Vitals: Temp Pulse Resp BP Pulse Ox 97.5 F L 72 16 120/48 96 09/06/18 11:32 09/06/18 11:32 09/06/18 11:32 09/06/18 11:32 09/06/18 11:32 Exam: General: Somnolent but appears comfortable Cardiovascular:Normal S1 & S2, No JVD. Pulse regular. Lungs: clear to auscultation, no wheezes/rales Abdomen:Soft, port sites appear unremarkable Extremities:No deformity or swelling - Assessment and Plan (1) GI bleed Current Visit: Yes Status: Acute Assessment and Plan: Likely due to bleeding cecal mass seen on colonoscopy on 09/02 Hb improved to 10.6 today, plavix on hold path for cecal mass: no evidence of malignancy. Sigmoid polyp turned out to be tubular adenoma CEA normal continue PPI daily, will transition to PO as she is started on CLD post-op underwent laparoscopic right hemicolectomy today. CLD and pain management per surgery follow up on path continue with TPN PT/OT (2) Colonic mass Current Visit: Yes Status: Acute Assessment and Plan: as above (3) CAD (coronary artery disease) Current Visit: Yes Status: Chronic Assessment and Plan: patient reports having 4 stents inserted about 4 years ago. On plavix as outpatient, hold for now cardiology input appreciated, will resume ASA post-op. To be discussed with surgery tomorrow continue bb, imdur, statin (4) HLD (hyperlipidemia) Current Visit: Yes Status: Chronic Assessment and Plan: On statin. (5) HTN (hypertension) Current Visit: Yes Status: Chronic Assessment and Plan: continue home meds DVT Prophylaxis: EPCD - Time Spent with Patient Total time spent is greater than 50% in coordination of care (as documented) at patient's floor/unit and/or counseling patient: Plan of Care Discussed with: family Internal Medicine: Result - Labs CBC & Chem 7: 09/06/18 04:50 09/06/18 04:50 Labs: Short CBC 09/06/18 Range/Units 04:50 Hgb 10.6 L D (11.5-15.4) g/dL Hct 32.7 L (35.3-44.9) % BMP 09/06/18 04:50 Sodium 136 Potassium 3.8 Chloride 107 Carbon Dioxide 23 BUN 14 Creatinine 0.78 Glucose 93 Calcium 9.6 - ABG Interpretation ABG results: PT/INR, D-dimer PT 11.5 Seconds (9.4-12.1) 09/06/18 04:50 - VTE Documentation of Mechanical Device: Intermittent pneumatic compression device Consult Discharge Plan - Plan Referrals: Charles Horn MD [Partnered Physician] - 09/14/18 10:15 am (Please follow up as schedule...) NONE,PCP [Primary Care Provider] - () (1) GI bleed Qualifiers: GI bleed type/associated pathology: unspecified gastrointestinal hemorrhage type Qualified Code(s): K92.2 - Gastrointestinal hemorrhage, unspecified (3) CAD (coronary artery disease) Qualifiers: Coronary Disease-Associated Artery/Lesion type: [place] artery [place] vs. transplanted heart: [place] heart Associated angina: without angina Qualified Code(s): I25.10 - Atherosclerotic heart disease of [place] coronary artery without angina pectoris (4) HLD (hyperlipidemia) Qualifiers: Hyperlipidemia type: unspecified Qualified Code(s): E78.5 - Hyperlipidemia, unspecified (5) HTN (hypertension) Qualifiers: Hypertension type: unspecified Qualified Code(s): I10 - Essential (primary) hypertension
[2018-09-06] MEDS: *HR* OxyCODONE Immed Rel 5 MG TABLET PO PRN ×2 (17:48→23:39)
[2018-09-07] MEDS: *HR* Enoxaparin 40 MG/0.4 ML SYRINGE SQ SCH (04:09)
[2018-09-07 04:49] LABS: Basophils % 0.1 %; Hemoglobin 9.4 g/dL (11.5-15.4); Immature Granulocytes % 0.5 % (0-4); Lymphocytes # 1.2 K/mcL (0.6-4.6); Lymphocytes % 6.4 %; Mean Corpuscular HGB Conc 32.4 g/dL (31.6-35.5); Mean Corpuscular Hemoglobin 30.8 pg (28.0-33.3); Mean Corpuscular Volume 95.1 fL (83.0-100.0); Mean Platelet Volume 10.3 fL (9.4-12.4); Monocytes # 1.8 K/mcL (0.0-1.3); Monocytes % 9.6 %; Neutrophils # 15.9 K/mcL (1.6-8.9); Platelet Count 214 K/mcL (140-400); Red Blood Count 3.05 M/mcL (3.82-4.97); Segmented Neutrophils % 83.4 %
[2018-09-07 05:07] LABS: BUN/Creatinine Ratio 29 (6-26); Blood Urea Nitrogen 21 mg/dL (8-23); Calcium 9.3 mg/dL (8.6-10.3); Carbon Dioxide 23 mEq/L (23-29); Chloride 106 mEq/L (98-107); Glucose 133 mg/dL (70-105); Magnesium 1.8 mg/dL (1.6-2.6); Osmolality,Calculated 287 (280-300); Phosphorous 1.8 mg/dL (2.7-4.5); Potassium 3.9 mEq/L (3.5-5.1); Sodium 136 mEq/L (136-145); eGFR For Non-African Americans > 60 (> 60)
[2018-09-07] MEDS ORDERED: Scopolamine Patch 1.5 MG PATCH.TD72 TD ONE (08:17)
[2018-09-07] MEDS: Isosorbide MONOnitrate (24 HR) 30 MG TAB.ER.24H PO SCH (09:51)
[2018-09-07] MEDS: *HR* OxyCODONE Immed Rel 5 MG TABLET PO PRN (09:52)
--- NOTE | 2018-09-07 10:00 | General Surgery Progress Note ---
<PeymanHali Liu - Last Filed: 09/07/18 11:02> Date of Encounter: 09/07/18 Time of Encounter: 09:57 - Assessment and Plan (1) Colonic mass Current Visit: Yes Status: Acute ate of procedure: 09/06/18 Pre-op diagnosis: bleeding cecal mass Post-op diagnosis: same Procedure: laparoscopic right hemicolectomy Implants: none Complications: none Anesthesia: GETA Local Anesthetics: 0.5% Sensorcaine HCL SubQ (cc) Surgeon: Sen Underwood POD #1 as above; pathology pending. Patient noted to have episode of vomiting with associated nausea overnight. She states the nausea is continuing throughout today. Suspect it is simply postoperative nausea as opposed to complication or ileus. We will place a scopolamine patch for 72 hours and scheduled Zofran for 24. Then returned to use PRN Zofran. She is also noted to have acute urinary retention postoperatively (bladder scan greater than 500 ML's). [address] will [address] a Loera and start Flomax; voiding trial in approximately 48 hours. Plan continue supportive care and discomfort management while awaiting full return of bowel function Add non-narcotic pain options given her nausea continue G.I. and DVT prophylaxis incentive spirometry EP CDs out of bed to chair TID (for all meals) ambulate TID serial abdominal exams daily dressing changes repeat a.m. labs place Loera catheter as above continue TPN until adequate PO (2) Postoperative nausea Current Visit: Yes Status: Acute Scopolamine patch for 72 hours scheduled Zofran for 24 hours, then returned to PRN may have limited clears for comfort (3) Acute urinary retention Current Visit: Yes Status: Acute >[address], start flomax (4) Protein-calorie malnutrition, mild Current Visit: Yes Status: Acute Continue TPN in the postoperative setting Subjective Patient reports: still having pain, no flatus, no bowel movement, nausea, afebrile Narrative: Difficulty urinating, nausea, vomiting Objective Vital Signs - Last 8 Hours Temp Pulse Resp BP Pulse Ox 09/07/18 07:25 99.1 F 72 17 138/49 97 09/07/18 04:39 97.8 F 69 18 149/59 98 Intake and Output 09/06/18 09/07/18 09/07/18 23:59 07:59 15:59 Intake Total 250 / 250 Output Total 0 / 0 Balance 0 / 0 250 / 250 Intake: IV Fluids 250 / 250 Intralipid 20% 250 ML @ 21 mls/ 250 / 250 hr IVPB DAILY@1700 [facility] Rx#: [id number] Output: Urine 0 / 0 Other: Weight 52.8 kg Blood Glucose* 211 Patient Weight 09/07/18 23:59 Weight 52.8 kg VITAL SIGNS: Reviewed. See [facility] GENERAL: In no apparent distress. HEENT: Normocephalic, atraumatic, pupils are equal and reactive, extraocular motions intact, oropharynx is pink and moist, there is no neck adenopathy or JVD noted. CHEST/RESPIRATORY: The thorax is free from signs of trauma. Lung sounds: clear to auscultation, normal respiratory effort CARDIAC: Regular rate and rhythm. Normal S1 and S2, without murmurs, gallops, or rubs. VASCULAR: No Edema. 2+ peripheral pulses. ABDOMEN: soft, expected postoperative tenderness, absent bowel sounds INCISION: Surgical incision is clean, dry, and intact. There are no signs of cellulitis or infection noted. MUSCULOSKELETAL: Reclined in bed. NEUROLOGIC EXAM: Alert and oriented x 3. Speech normal. Follows commands. PSYCHIATRIC: Mood normal. SKIN: No rash or lesions. - Labs 09/07/18 04:29 09/07/18 04:29 Diabetes panel 09/07/18 Range/Units 04:29 Sodium 136 (136-145) mEq/L Potassium 3.9 (3.5-5.1) mEq/L Chloride 106 (98-107) mEq/L Carbon Dioxide 23 (23-29) mEq/L BUN 21 (8-23) mg/dL Creatinine 0.72 (0.60-1.20) mg/dL Glucose 133 H (70-105) mg/dL Calcium 9.3 (8.6-10.3) mg/dL Calcium panel 09/07/18 Range/Units 04:29 Calcium 9.3 (8.6-10.3) mg/dL Phosphorus 1.8 L (2.7-4.5) mg/dL Pituitary panel 09/07/18 Range/Units 04:29 Sodium 136 (136-145) mEq/L Potassium 3.9 (3.5-5.1) mEq/L Chloride 106 (98-107) mEq/L Carbon Dioxide 23 (23-29) mEq/L BUN 21 (8-23) mg/dL Creatinine 0.72 (0.60-1.20) mg/dL Glucose 133 H (70-105) mg/dL Calcium 9.3 (8.6-10.3) mg/dL Adrenal panel 09/07/18 Range/Units 04:29 Sodium 136 (136-145) mEq/L Potassium 3.9 (3.5-5.1) mEq/L Chloride 106 (98-107) mEq/L Carbon Dioxide 23 (23-29) mEq/L BUN 21 (8-23) mg/dL Creatinine 0.72 (0.60-1.20) mg/dL Glucose 133 H (70-105) mg/dL Calcium 9.3 (8.6-10.3) mg/dL - VTE Documentation of Mechanical Device: Intermittent pneumatic compression device Consult Discharge Plan - Plan Referrals: Charles Horn MD [Partnered Physician] - 09/14/18 10:15 am (Please follow up as schedule...) NONE,PCP [Primary Care Provider] - () <Sen Underwood - Last Filed: 09/07/18 15:10> Date of Encounter: 09/07/18 - Assessment and Plan (1) GI bleed Current Visit: Yes Status: Acute Qualifiers: GI bleed type/associated pathology: unspecified gastrointestinal hemorrhage type Qualified Code(s): K92.2 - Gastrointestinal hemorrhage, unspecified Objective Vital Signs - Last 8 Hours Temp Pulse Resp BP Pulse Ox 09/07/18 11:09 98.1 F 63 20 118/59 98 09/07/18 07:25 99.1 F 72 17 138/49 97 Intake and Output 09/06/18 09/07/18 09/07/18 23:59 07:59 15:59 Intake Total 250 / 250 100 / 100 Output Total 0 / 0 650 / 650 Balance 0 / 0 250 / 250 -550 / -550 Intake: IV Fluids 250 / 250 100 / 100 Ofirmev 1,000 mg/100 ml 1,000 100 / 100 mg In 100 ml @ 400 mls/hr IVPB Q6HR [facility] Rx#:[id number] Intralipid 20% 250 ML @ 21 mls/ 250 / 250 hr IVPB DAILY@1700 [facility] Rx#: [id number] Output: Urine 0 / 0 250 / 250 Catheter 400 / 400 Other: Weight 52.8 kg Blood Glucose* 211 131 Patient Weight 09/07/18 23:59 Weight 52.8 kg - Labs 09/07/18 04:29 09/07/18 04:29 Diabetes panel 09/07/18 Range/Units 04:29 Sodium 136 (136-145) mEq/L Potassium 3.9 (3.5-5.1) mEq/L Chloride 106 (98-107) mEq/L Carbon Dioxide 23 (23-29) mEq/L BUN 21 (8-23) mg/dL Creatinine 0.72 (0.60-1.20) mg/dL Glucose 133 H (70-105) mg/dL Calcium 9.3 (8.6-10.3) mg/dL Calcium panel 09/07/18 Range/Units 04:29 Calcium 9.3 (8.6-10.3) mg/dL Phosphorus 1.8 L (2.7-4.5) mg/dL Pituitary panel 09/07/18 Range/Units 04:29 Sodium 136 (136-145) mEq/L Potassium 3.9 (3.5-5.1) mEq/L Chloride 106 (98-107) mEq/L Carbon Dioxide 23 (23-29) mEq/L BUN 21 (8-23) mg/dL Creatinine 0.72 (0.60-1.20) mg/dL Glucose 133 H (70-105) mg/dL Calcium 9.3 (8.6-10.3) mg/dL Adrenal panel 09/07/18 Range/Units 04:29 Sodium 136 (136-145) mEq/L Potassium 3.9 (3.5-5.1) mEq/L Chloride 106 (98-107) mEq/L Carbon Dioxide 23 (23-29) mEq/L BUN 21 (8-23) mg/dL Creatinine 0.72 (0.60-1.20) mg/dL Glucose 133 H (70-105) mg/dL Calcium 9.3 (8.6-10.3) mg/dL - Attending Attestation patient seen and examined. i have reviewed all labs, imaging, and notes. i have discussed the case with the STRAP CUTTER in detail. I agree with the above assessment and plan and wish to add the following... POD #1 s/p lap r lee; nauseated; cont with TPN, do NOT advance diet today; PT/OT; OOBTC; cont with current pain regimen;
--- NOTE | 2018-09-07 10:59 | Internal Med Progress Note ---
Hospitalist Progress Note - Encounter Date of Encounter: 09/07/18 Time of Encounter: 08:45 - Subjective Interval History: Having mild abdominal discomfort at the op site. No flatus or BM yet. Nauseous overnight and vomited x 1. - Exam Vitals: Temp Pulse Resp BP Pulse Ox 99.1 F 72 17 138/49 97 09/07/18 07:25 09/07/18 07:25 09/07/18 07:25 09/07/18 07:25 09/07/18 07:25 Exam: General: A&O x 3, not in distress Cardiovascular:Normal S1 & S2, No JVD. Pulse regular. Lungs: clear to auscultation, no wheezes/rales Abdomen:Soft, mild generalized tenderness without rebound/guarding. Surgical incision appear unremarkable Extremities:No deformity or swelling - Assessment and Plan (1) GI bleed Current Visit: Yes Status: Acute Assessment and Plan: due to bleeding cecal mass seen on colonoscopy on 09/02 path for cecal mass: no evidence of malignancy. Sigmoid polyp turned out to be tubular adenoma CEA normal underwent laparoscopic right hemicolectomy yesterday. POD #1 post-op mx per surgery, appreciate input follow up on path continue with TPN until adequate PO intake PT/OT (2) Colonic mass Current Visit: Yes Status: Acute Assessment and Plan: as above (3) CAD (coronary artery disease) Current Visit: Yes Status: Chronic Assessment and Plan: patient reports having 4 stents inserted about 4 years ago. On plavix as outpatient, hold for now cardiology input appreciated, will resume ASA when she is able to take by mouth without significant nausea continue bb, imdur, statin (4) HLD (hyperlipidemia) Current Visit: Yes Status: Chronic Assessment and Plan: On statin. (5) HTN (hypertension) Current Visit: Yes Status: Chronic Assessment and Plan: continue home meds DVT Prophylaxis: lovenox - Time Spent with Patient Total time spent is greater than 50% in coordination of care (as documented) at patient's floor/unit and/or counseling patient: Plan of Care Discussed with: patient (discussed with surgical team) Internal Medicine: Result - Labs CBC & Chem 7: 09/07/18 04:29 09/07/18 04:29 Labs: Short CBC 09/07/18 Range/Units 04:29 WBC 19.0 H D (4.3-11.1) K/mcL Hgb 9.4 L (11.5-15.4) g/dL Hct 29.0 L (35.3-44.9) % Plt Count 214 (140-400) K/mcL Neutrophils # 15.9 H (1.6-8.9) K/mcL BMP 09/07/18 04:29 Sodium 136 Potassium 3.9 Chloride 106 Carbon Dioxide 23 BUN 21 Creatinine 0.72 Glucose 133 H Calcium 9.3 - ABG Interpretation ABG results: PT/INR, D-dimer PT 11.5 Seconds (9.4-12.1) 09/06/18 04:50 - VTE Documentation of Mechanical Device: Intermittent pneumatic compression device Consult Discharge Plan - Plan Referrals: Charles Horn MD [Partnered Physician] - 09/14/18 10:15 am (Please follow up as schedule...) NONE,PCP [Primary Care Provider] - () (1) GI bleed Qualifiers: GI bleed type/associated pathology: unspecified gastrointestinal hemorrhage type Qualified Code(s): K92.2 - Gastrointestinal hemorrhage, unspecified (3) CAD (coronary artery disease) Qualifiers: Coronary Disease-Associated Artery/Lesion type: [place] artery [place] vs. transplanted heart: [place] heart Associated angina: without angina Qualified Code(s): I25.10 - Atherosclerotic heart disease of [place] coronary artery without angina pectoris (4) HLD (hyperlipidemia) Qualifiers: Hyperlipidemia type: unspecified Qualified Code(s): E78.5 - Hyperlipidemia, unspecified (5) HTN (hypertension) Qualifiers: Hypertension type: unspecified Qualified Code(s): I10 - Essential (primary) hypertension
[2018-09-07] MEDS: Ketorolac 15 MG/ML VIAL IVP SCH ×2 (12:34→18:06)
[2018-09-07] MEDS: Ondansetron 4 MG/2 ML VIAL IVP SCH ×3 (12:34→21:05)
[2018-09-07] MEDS: Pantoprazole 40 MG VIAL IVP SCH (12:52)
[2018-09-07] MEDS: Acetaminophen IV 1,000 MG/100 ML INFUS..BTL IVPB SCH ×3 (12:52→18:02)
[2018-09-07] MEDS ORDERED: Clinimix E 5%-15% SOLUTION 2,000 ML with MVI, adult with vitamin K 10 ML IVC SCH (17:00)
[2018-09-07] MEDS: Ringers Solution, Lactated 1,000 ML IVC SCH (23:55)
[2018-09-08] MEDS: Acetaminophen IV 1,000 MG/100 ML INFUS..BTL IVPB SCH ×2 (00:12→05:54)
[2018-09-08] MEDS: Ondansetron 4 MG/2 ML VIAL IVP SCH ×4 (00:13→12:15)
[2018-09-08] MEDS: Ketorolac 15 MG/ML VIAL IVP SCH ×4 (00:13→17:05)
[2018-09-08] MEDS: *HR* Enoxaparin 40 MG/0.4 ML SYRINGE SQ SCH (05:53)
[2018-09-08] MEDS: Isosorbide MONOnitrate (24 HR) 30 MG TAB.ER.24H PO SCH (08:41)
[2018-09-08] MEDS: Pantoprazole 40 MG VIAL IVP SCH (08:42)
--- NOTE | 2018-09-08 09:59 | Internal Med Progress Note ---
Hospitalist Progress Note - Encounter Date of Encounter: 09/08/18 Time of Encounter: 07:45 - Subjective Interval History: Improving abdominal discomfort and nausea. Able to tolerate CLD this morning without any difficulty. No flatus or BM yet but started to feel like "they are about to come. No fever/chills. - Exam Vitals: Temp Pulse Resp BP Pulse Ox 98.4 F 72 16 145/61 91 09/08/18 07:10 09/08/18 07:10 09/08/18 07:10 09/08/18 07:10 09/08/18 07:10 Exam: General: A&O x 3, not in distress Cardiovascular:Normal S1 & S2, No JVD. Pulse regular. Lungs: clear to auscultation, no wheezes/rales Abdomen:Soft, mild generalized tenderness without rebound/guarding. Surgical incision appear unremarkable Extremities:No deformity or swelling - Assessment and Plan (1) GI bleed Current Visit: Yes Status: Acute Assessment and Plan: due to bleeding cecal mass seen on colonoscopy on 09/02 path for cecal mass: no evidence of malignancy. Sigmoid polyp turned out to be tubular adenoma CEA normal underwent laparoscopic right hemicolectomy POD #2 post-op mx per surgery, appreciate input follow up on path continue with TPN until adequate PO intake PT/OT (2) Colonic mass Current Visit: Yes Status: Acute Assessment and Plan: as above (3) CAD (coronary artery disease) Current Visit: Yes Status: Chronic Assessment and Plan: patient reports having 4 stents inserted about 4 years ago. On plavix as outpatient, hold cardiology input appreciated, will resume ASA when she is able to take by mouth without significant nausea continue bb, imdur, statin (4) HLD (hyperlipidemia) Current Visit: Yes Status: Chronic Assessment and Plan: On statin. (5) HTN (hypertension) Current Visit: Yes Status: Chronic Assessment and Plan: continue home meds DVT Prophylaxis: lovenox - Time Spent with Patient Total time spent is greater than 50% in coordination of care (as documented) at patient's floor/unit and/or counseling patient: Plan of Care Discussed with: patient Internal Medicine: Result - Labs CBC & Chem 7: 09/07/18 04:29 09/07/18 04:29 - ABG Interpretation ABG results: PT/INR, D-dimer PT 11.5 Seconds (9.4-12.1) 09/06/18 04:50 - VTE Documentation of Mechanical Device: Intermittent pneumatic compression device Consult Discharge Plan - Plan Referrals: Charles Horn MD [Partnered Physician] - 09/14/18 10:15 am (Please follow up as schedule...) NONE,PCP [Primary Care Provider] - () (1) GI bleed Qualifiers: GI bleed type/associated pathology: unspecified gastrointestinal hemorrhage type Qualified Code(s): K92.2 - Gastrointestinal hemorrhage, unspecified (3) CAD (coronary artery disease) Qualifiers: Coronary Disease-Associated Artery/Lesion type: [place] artery [place] vs. transplanted heart: [place] heart Associated angina: without angina Qualified Code(s): I25.10 - Atherosclerotic heart disease of [place] coronary artery without angina pectoris (4) HLD (hyperlipidemia) Qualifiers: Hyperlipidemia type: unspecified Qualified Code(s): E78.5 - Hyperlipidemia, unspecified (5) HTN (hypertension) Qualifiers: Hypertension type: unspecified Qualified Code(s): I10 - Essential (primary) hypertension
[2018-09-08 11:00] LABS: Basophils # 0.1 K/mcL (0.0-0.2); Basophils % 0.7 %; Eosinophils # 0.3 K/mcL (0.0-0.6); Eosinophils % 2.6 %; Hematocrit 26.4 % (35.3-44.9); Hemoglobin 8.5 g/dL (11.5-15.4); Immature Granulocytes % 0.4 % (0-4); Lymphocytes # 1.3 K/mcL (0.6-4.6); Lymphocytes % 11.5 %; Mean Corpuscular HGB Conc 32.2 g/dL (31.6-35.5); Mean Corpuscular Hemoglobin 30.7 pg (28.0-33.3); Mean Corpuscular Volume 95.3 fL (83.0-100.0); Mean Platelet Volume 10.2 fL (9.4-12.4); Monocytes # 1.3 K/mcL (0.0-1.3); Monocytes % 11.8 %; Neutrophils # 8.3 K/mcL (1.6-8.9); Platelet Count 204 K/mcL (140-400); Red Blood Count 2.77 M/mcL (3.82-4.97); Red Cell Distribution Width 13.5 % (11.5-14.5)
[2018-09-08 11:13] LABS: BUN/Creatinine Ratio 26 (6-26); Blood Urea Nitrogen 22 mg/dL (8-23); Calcium 9.2 mg/dL (8.6-10.3); Carbon Dioxide 26 mEq/L (23-29); Chloride 108 mEq/L (98-107); Glucose 101 mg/dL (70-105); Osmolality,Calculated 283 (280-300); Phosphorous 3.1 mg/dL (2.7-4.5); Potassium 3.7 mEq/L (3.5-5.1); Sodium 135 mEq/L (136-145); eGFR For Non-African Americans > 60 (> 60)
--- NOTE | 2018-09-08 15:47 | General Surgery Progress Note ---
Date of Encounter: 09/08/18 Time of Encounter: 15:46 - Assessment and Plan (1) Colonic mass Current Visit: Yes Status: Acute Plan to continue liquids at this point. Patient should be up in the chair 3 times daily. Patient should ambulate 3 times daily. Subjective Narrative: This an 82-year-old status post laparoscopic right hemicolectomy. She is doing well. States she feels better than yesterday. No shortness of breath. She denies any fever. However she does have some nausea with increased liquid inta ke. Objective Vital Signs - Last 8 Hours Temp Pulse Resp BP Pulse Ox 09/08/18 15:12 98.0 F 63 14 127/54 98 09/08/18 12:25 97.9 F 58 16 111/53 96 Intake and Output 09/07/18 09/08/18 09/08/18 23:59 07:59 15:59 Intake Total 100 / 100 100 / 100 360 / 360 Output Total 700 / 700 600 / 600 Balance 100 / 100 -600 / -600 -240 / -240 Intake: IV Fluids 100 / 100 100 / 100 Ofirmev 1,000 mg/100 ml 1,000 100 / 100 100 / 100 mg In 100 ml @ 400 mls/hr IVPB Q6HR [facility] Rx#:[id number] Oral 360 / 360 Output: Catheter 700 / 700 600 / 600 Urethral (Gross) 600 / 600 Other: Meal Lunch Percent of Meal Consumed 0% Weight 53.1 kg Blood Glucose* 123 117 95 Patient Weight 09/08/18 23:59 Weight 53.1 kg - General physical appearance well developed, well nourished - Eyes PERRL - Neck Neck exam: trachea midline - Respiratory normal expansion - Cardiovascular Cardiovascular exam: Present: RRR - Abdomen Abdomen: Present: bowel sounds present - Neurologic CN 2-12 grossly intact - Labs 09/08/18 04:00 09/08/18 10:43 Diabetes panel 09/08/18 Range/Units 10:43 Sodium 135 L (136-145) mEq/L Potassium 3.7 (3.5-5.1) mEq/L Chloride 108 H (98-107) mEq/L Carbon Dioxide 26 (23-29) mEq/L BUN 22 (8-23) mg/dL Creatinine 0.85 (0.60-1.20) mg/dL Glucose 101 (70-105) mg/dL Calcium 9.2 (8.6-10.3) mg/dL Calcium panel 09/08/18 Range/Units 10:43 Calcium 9.2 (8.6-10.3) mg/dL Phosphorus 3.1 (2.7-4.5) mg/dL Pituitary panel 09/08/18 Range/Units 10:43 Sodium 135 L (136-145) mEq/L Potassium 3.7 (3.5-5.1) mEq/L Chloride 108 H (98-107) mEq/L Carbon Dioxide 26 (23-29) mEq/L BUN 22 (8-23) mg/dL Creatinine 0.85 (0.60-1.20) mg/dL Glucose 101 (70-105) mg/dL Calcium 9.2 (8.6-10.3) mg/dL Adrenal panel 09/08/18 Range/Units 10:43 Sodium 135 L (136-145) mEq/L Potassium 3.7 (3.5-5.1) mEq/L Chloride 108 H (98-107) mEq/L Carbon Dioxide 26 (23-29) mEq/L BUN 22 (8-23) mg/dL Creatinine 0.85 (0.60-1.20) mg/dL Glucose 101 (70-105) mg/dL Calcium 9.2 (8.6-10.3) mg/dL - VTE Documentation of Mechanical Device: Intermittent pneumatic compression device Consult Discharge Plan - Plan Referrals: Charles Horn MD [Partnered Physician] - 09/14/18 10:15 am (Please follow up as schedule...) NONE,PCP [Primary Care Provider] - ()
[2018-09-08] MEDS: Clinimix E 5%-15% SOLUTION 2,000 ML with MVI, adult with vitamin K 10 ML IVC SCH (17:05)
[2018-09-09] MEDS: Ketorolac 15 MG/ML VIAL IVP SCH ×3 (00:34→11:23)
[2018-09-09] MEDS: *HR* Enoxaparin 40 MG/0.4 ML SYRINGE SQ SCH (05:25)
[2018-09-09 07:10] LABS: Eosinophils % 3.9 %; Immature Granulocytes % 0.5 % (0-4); Lymphocytes % 13.6 %; Mean Corpuscular HGB Conc 32.3 g/dL (31.6-35.5); Mean Corpuscular Hemoglobin 30.5 pg (28.0-33.3); Mean Platelet Volume 10.2 fL (9.4-12.4); Monocytes % 14.9 %; Platelet Count 191 K/mcL (140-400); Red Blood Count 2.75 M/mcL (3.82-4.97); Red Cell Distribution Width 13.3 % (11.5-14.5); Segmented Neutrophils % 66.1 %
[2018-09-09 07:11] LABS: Basophils # 0.1 K/mcL (0.0-0.2); Eosinophils # 0.4 K/mcL (0.0-0.6); Hemoglobin 8.4 g/dL (11.5-15.4); Lymphocytes # 1.3 K/mcL (0.6-4.6); Mean Corpuscular Volume 94.5 fL (83.0-100.0); Monocytes # 1.4 K/mcL (0.0-1.3); Neutrophils # 6.1 K/mcL (1.6-8.9)
[2018-09-09 07:31] LABS: BUN/Creatinine Ratio 26 (6-26); Blood Urea Nitrogen 21 mg/dL (8-23); Carbon Dioxide 26 mEq/L (23-29); Chloride 107 mEq/L (98-107); Glucose 117 mg/dL (70-105); Osmolality,Calculated 284 (280-300); Phosphorous 2.3 mg/dL (2.7-4.5); Potassium 3.8 mEq/L (3.5-5.1); Sodium 135 mEq/L (136-145); eGFR For Non-African Americans > 60 (> 60)
[2018-09-09] MEDS: Isosorbide MONOnitrate (24 HR) 30 MG TAB.ER.24H PO SCH (09:26)
[2018-09-09] MEDS: Pantoprazole 40 MG VIAL IVP SCH (09:27)
--- NOTE | 2018-09-09 10:54 | Internal Med Progress Note ---
Hospitalist Progress Note - Encounter Date of Encounter: 09/09/18 Time of Encounter: 10:00 - Subjective Interval History: Continues to hae improvement in abdominal discomfort and nausea. Able to tolerate CLD although she is not trying to have too much. No BM yet. No fever/chills. - Exam Vitals: Temp Pulse Resp BP Pulse Ox 99.2 F 77 16 138/52 96 09/09/18 07:10 09/09/18 07:10 09/09/18 07:10 09/09/18 07:10 09/09/18 07:10 Exam: General: A&O x 3, not in distress Cardiovascular:Normal S1 & S2, No JVD. Pulse regular. Lungs: clear to auscultation, no wheezes/rales Abdomen:Soft, mild generalized tenderness without rebound/guarding. Surgical incision appear unremarkable Extremities:No deformity or swelling - Assessment and Plan (1) GI bleed Current Visit: Yes Status: Acute Assessment and Plan: due to bleeding cecal mass seen on colonoscopy on 09/02 path for cecal mass: no evidence of malignancy. Sigmoid polyp turned out to be tubular adenoma CEA normal underwent laparoscopic right hemicolectomy POD #3 post-op mx per surgery, appreciate input follow up on path continue with TPN until adequate PO intake PT/OT (2) Colonic mass Current Visit: Yes Status: Acute Assessment and Plan: as above (3) CAD (coronary artery disease) Current Visit: Yes Status: Chronic Assessment and Plan: patient reports having 4 stents inserted about 4 years ago. On plavix as outpatient, hold cardiology input appreciated, will discuss about ASA tomorrow continue bb, imdur, statin (4) HLD (hyperlipidemia) Current Visit: Yes Status: Chronic Assessment and Plan: On statin. (5) HTN (hypertension) Current Visit: Yes Status: Chronic Assessment and Plan: continue home meds DVT Prophylaxis: lovenox - Time Spent with Patient Total time spent is greater than 50% in coordination of care (as documented) at patient's floor/unit and/or counseling patient: Plan of Care Discussed with: patient (discussed with nursing) Internal Medicine: Result - Labs CBC & Chem 7: 09/09/18 06:50 09/09/18 06:50 Labs: Short CBC 09/08/18 09/09/18 09/09/18 Range/Units 04:00 06:07 06:50 WBC 11.4 H TNP 9.2 (4.3-11.1) K/mcL Hgb 8.5 L TNP 8.4 L (11.5-15.4) g/dL Hct 26.4 L TNP 26.0 L (35.3-44.9) % Plt Count 204 TNP 191 (140-400) K/mcL Neutrophils # 8.3 TNP 6.1 (1.6-8.9) K/mcL BMP 09/08/18 09/09/18 09/09/18 10:43 05:18 06:50 Sodium 135 L TNP 135 L Potassium 3.7 TNP 3.8 Chloride 108 H TNP 107 Carbon Dioxide 26 TNP 26 BUN 22 TNP 21 Creatinine 0.85 TNP 0.80 Glucose 101 TNP 117 H Calcium 9.2 TNP 9.0 - ABG Interpretation ABG results: PT/INR, D-dimer PT 11.5 Seconds (9.4-12.1) 09/06/18 04:50 - VTE Documentation of Mechanical Device: Intermittent pneumatic compression device Consult Discharge Plan - Plan Referrals: Charles Horn MD [Partnered Physician] - 09/14/18 10:15 am (Please follow up as schedule...) NONE,PCP [Primary Care Provider] - () (1) GI bleed Qualifiers: GI bleed type/associated pathology: unspecified gastrointestinal hemorrhage type Qualified Code(s): K92.2 - Gastrointestinal hemorrhage, unspecified (3) CAD (coronary artery disease) Qualifiers: Coronary Disease-Associated Artery/Lesion type: [place] artery [place] vs. transplanted heart: [place] heart Associated angina: without angina Qualified Code(s): I25.10 - Atherosclerotic heart disease of [place] coronary artery without angina pectoris (4) HLD (hyperlipidemia) Qualifiers: Hyperlipidemia type: unspecified Qualified Code(s): E78.5 - Hyperlipidemia, unspecified (5) HTN (hypertension) Qualifiers: Hypertension type: unspecified Qualified Code(s): I10 - Essential (primary) hypertension
[2018-09-09] MEDS: Clinimix E 5%-15% SOLUTION 2,000 ML with MVI, adult with vitamin K 10 ML IVC SCH ×2 (16:53→17:06)
[2018-09-10 04:06] LABS: Basophils # 0.1 K/mcL (0.0-0.2); Basophils % 0.6 %; Eosinophils # 0.4 K/mcL (0.0-0.6); Eosinophils % 3.7 %; Hematocrit 27.1 % (35.3-44.9); Hemoglobin 8.7 g/dL (11.5-15.4); Immature Granulocytes % 0.4 % (0-4); Lymphocytes # 1.3 K/mcL (0.6-4.6); Lymphocytes % 13.1 %; Mean Corpuscular HGB Conc 32.1 g/dL (31.6-35.5); Mean Corpuscular Hemoglobin 30.6 pg (28.0-33.3); Mean Corpuscular Volume 95.4 fL (83.0-100.0); Mean Platelet Volume 10.2 fL (9.4-12.4); Monocytes # 1.2 K/mcL (0.0-1.3); Monocytes % 11.8 %; Neutrophils # 7.1 K/mcL (1.6-8.9); Platelet Count 224 K/mcL (140-400); Red Blood Count 2.84 M/mcL (3.82-4.97); Red Cell Distribution Width 13.5 % (11.5-14.5); Segmented Neutrophils % 70.4 %
[2018-09-10 04:21] LABS: BUN/Creatinine Ratio 27 (6-26); Blood Urea Nitrogen 20 mg/dL (8-23); Calcium 8.8 mg/dL (8.6-10.3); Carbon Dioxide 25 mEq/L (23-29); Chloride 105 mEq/L (98-107); Glucose 128 mg/dL (70-105); Osmolality,Calculated 282 (280-300); Phosphorous 2.2 mg/dL (2.7-4.5); Potassium 3.9 mEq/L (3.5-5.1); Sodium 134 mEq/L (136-145); eGFR For Non-African Americans > 60 (> 60)
[2018-09-10] MEDS: *HR* Enoxaparin 40 MG/0.4 ML SYRINGE SQ SCH (05:02)
[2018-09-10] MEDS ORDERED: Ondansetron 4 MG/2 ML VIAL IVP STA (07:35)
[2018-09-10] MEDS ORDERED: Ondansetron ODT 4 MG TAB.RAPDIS SL PRN (07:35)
[2018-09-10] MEDS ORDERED: Metoclopramide 10 MG/2 ML VIAL IVP STA (07:37)
[2018-09-10] MEDS ORDERED: Acetaminophen 325 MG TABLET PO PRN (07:38)
[2018-09-10] MEDS ORDERED: Ibuprofen 600 MG TABLET PO PRN (07:38)
[2018-09-10] MEDS ORDERED: *HR* HYDROcodone/Acet 5/325 mg TABLET PO PRN (07:39)
[2018-09-10] MEDS ORDERED: Scopolamine Patch 1.5 MG PATCH.TD72 TD SCH (07:45)
--- NOTE | 2018-09-10 07:51 | General Surgery Progress Note ---
Addendum entered and electronically signed by Hali Morley CNP 09/10/18 15:52: Please note pathology noted below is from the [id number] procedure. Surgery path is pending Original Note: <Hali Morley - Last Filed: 09/10/18 07:41> Date of Encounter: 09/10/18 Time of Encounter: 07:41 - Assessment and Plan (1) Colonic mass Current Visit: Yes Status: Acute ate of procedure: 09/06/18 Pre-op diagnosis: bleeding cecal mass Post-op diagnosis: same Procedure: laparoscopic right hemicolectomy Implants: none Complications: none Anesthesia: GETA Local Anesthetics: 0.5% Sensorcaine HCL SubQ (cc) Surgeon: Sen Underwood POD #4 as above; pathology Cecal mass: noted polyp later fragments of colonic mucosa with lymphoid aggregate, eosinophils, acute and inflammatory changes, hyperplastic as well as regenerative changes, Sigmoid colon: tubular adenoma. Diagnosis comment per surgical path report, no evidence of malignancy is seen in specimen a. If suspicion for malignancy is high additional further evaluation may be considered. She was noted to have nausea on Monday postoperatively. We placed a scopolamine patch and scheduled Zofran. She states while these were in place her nausea was significantly better, but last night she became nauseated and vomited. She reports continued nausea at this time. She is having flatus and bowel movements. She denies worsening abdominal discomfort. We will replace the scopolamine patch for an additional 72 hours, give a scheduled dose of Zofran now, and then sublingual Zofran Q4 hours PRN for nausea. She can continue this at discharge if needed. A Gross catheter was placed and Flomax initiated on Monday for acute urinary retention. Surgery will defer further treatment recommendations regarding to the primary team. Plan continue supportive care and discomfort management while awaiting full return of bowel function Scopolamine patch Zofran IVP x1 now PRN SL Zofran for nausea AND premedicate prior to narcotics if she takes them PRN non-narcotic pain control first Rgelan IV x1 dose Add scheduled colace, may d/c if loose or frequent stools continue G.I. and DVT prophylaxis OK to resume plavix incentive spirometry EP CDs out of bed to chair TID (for all meals) ambulate TID serial abdominal exams daily dressing changes repeat a.m. labs Wean TPN to off CLD for breakfast. Once nausea is under controlled this am, will advance her diet for lunch or dinner; may add protein supplement when diet is advanced PT/OT eval and treat noted. She will be ok to d/c (likely placement) once her nausea is controlled (with or without premedicating). (2) Postoperative nausea Current Visit: Yes Status: Acute see above (3) Acute urinary retention Current Visit: Yes Status: Resolved see above (4) Protein-calorie malnutrition, mild Current Visit: Yes Status: Acute see above Subjective Patient reports: pain is less, voiding w/o difficulty, nausea, vomiting (x1), afebrile Objective Vital Signs - Last 8 Hours Temp Pulse Resp BP Pulse Ox 09/10/18 04:58 98.8 F 77 16 130/62 94 Intake and Output 09/09/18 09/09/18 09/10/18 15:59 23:59 07:59 Intake Total 611 / 611 Output Total 950 / 950 300 / 300 300 / 300 Balance -950 / -950 311 / 311 -300 / -300 Intake: IV Fluids 611 / 611 Clinimix E 5%-15% SOLUTION 2, 611 / 611 000 ML @ 60 mls/hr IVC .Q24H JESSICA with M.v.i. Adult 10 ml Rx# :[id number] Output: Urine 300 / 300 300 / 300 Catheter 950 / 950 Other: Stool Size Small Stool Consistency soft Stool Characteristics Normal for Patient Stool Color Brown Blood Glucose* 124 131 - General physical appearance well nourished, no distress, no pain, other - Eyes normal ocular movement - ENT normal nares, dentures, dry mucosa, atraumatic, normocephalic - Neck Neck exam: trachea midline - Respiratory normal expansion, clear to auscultation - Cardiovascular Cardiovascular exam: Present: RRR - Abdomen Abdomen: Present: bowel sounds present, soft, tender (Expected postoperative) Hernia: none - Incision Incision: Present: clean and dry, intact. Absent: red, erythema, indurated - Integumentary no rash - Neurologic normal coordination, normal sensation - Musculoskeletal normal posture - Psychiatric oriented to time, oriented to person, oriented to place, speech is normal, m [place] intact - Labs 09/10/18 03:48 09/10/18 03:48 Diabetes panel 09/10/18 Range/Units 03:48 Sodium 134 L (136-145) mEq/L Potassium 3.9 (3.5-5.1) mEq/L Chloride 105 (98-107) mEq/L Carbon Dioxide 25 (23-29) mEq/L BUN 20 (8-23) mg/dL Creatinine 0.74 (0.60-1.20) mg/dL Glucose 128 H (70-105) mg/dL Calcium 8.8 (8.6-10.3) mg/dL Calcium panel 09/10/18 Range/Units 03:48 Calcium 8.8 (8.6-10.3) mg/dL Phosphorus 2.2 L (2.7-4.5) mg/dL Pituitary panel 09/10/18 Range/Units 03:48 Sodium 134 L (136-145) mEq/L Potassium 3.9 (3.5-5.1) mEq/L Chloride 105 (98-107) mEq/L Carbon Dioxide 25 (23-29) mEq/L BUN 20 (8-23) mg/dL Creatinine 0.74 (0.60-1.20) mg/dL Glucose 128 H (70-105) mg/dL Calcium 8.8 (8.6-10.3) mg/dL Adrenal panel 09/10/18 Range/Units 03:48 Sodium 134 L (136-145) mEq/L Potassium 3.9 (3.5-5.1) mEq/L Chloride 105 (98-107) mEq/L Carbon Dioxide 25 (23-29) mEq/L BUN 20 (8-23) mg/dL Creatinine 0.74 (0.60-1.20) mg/dL Glucose 128 H (70-105) mg/dL Calcium 8.8 (8.6-10.3) mg/dL - VTE Documentation of Mechanical Device: Intermittent pneumatic compression device Consult Discharge Plan - Plan Referrals: Charles Horn MD [Partnered Physician] - 09/14/18 10:15 am (Please follow up as schedule...) NONE,PCP [Primary Care Provider] - () <Sen Underwood - Last Filed: 09/10/18 08:42> Date of Encounter: 09/10/18 - Assessment and Plan (1) GI bleed Current Visit: Yes Status: Acute Qualifiers: GI bleed type/associated pathology: unspecified gastrointestinal hemorrhage type Qualified Code(s): K92.2 - Gastrointestinal hemorrhage, unspecified Objective Vital Signs - Last 8 Hours Temp Pulse Resp BP Pulse Ox 09/10/18 07:38 97.9 F 105 18 146/58 93 09/10/18 04:58 98.8 F 77 16 130/62 94 Intake and Output 09/09/18 09/10/18 09/10/18 23:59 07:59 15:59 Intake Total Output Total 300 / 300 300 / 300 Balance 311 / 311 -300 / -300 Intake: IV Fluids Clinimix E 5%-15% SOLUTION 2, 000 ML @ 60 mls/hr IVC .Q24H JESSICA with M.v.i. Adult 10 ml Rx# :[id number] Output: Urine 300 / 300 300 / 300 Other: Stool Size Small Stool Consistency soft Stool Characteristics Normal for Patient Stool Color Brown Blood Glucose* 131 128 - Labs 09/10/18 03:48 09/10/18 03:48 Diabetes panel 09/10/18 Range/Units 03:48 Sodium 134 L (136-145) mEq/L Potassium 3.9 (3.5-5.1) mEq/L Chloride 105 (98-107) mEq/L Carbon Dioxide 25 (23-29) mEq/L BUN 20 (8-23) mg/dL Creatinine 0.74 (0.60-1.20) mg/dL Glucose 128 H (70-105) mg/dL Calcium 8.8 (8.6-10.3) mg/dL Calcium panel 09/10/18 Range/Units 03:48 Calcium 8.8 (8.6-10.3) mg/dL Phosphorus 2.2 L (2.7-4.5) mg/dL Pituitary panel 09/10/18 Range/Units 03:48 Sodium 134 L (136-145) mEq/L Potassium 3.9 (3.5-5.1) mEq/L Chloride 105 (98-107) mEq/L Carbon Dioxide 25 (23-29) mEq/L BUN 20 (8-23) mg/dL Creatinine 0.74 (0.60-1.20) mg/dL Glucose 128 H (70-105) mg/dL Calcium 8.8 (8.6-10.3) mg/dL Adrenal panel 09/10/18 Range/Units 03:48 Sodium 134 L (136-145) mEq/L Potassium 3.9 (3.5-5.1) mEq/L Chloride 105 (98-107) mEq/L Carbon Dioxide 25 (23-29) mEq/L BUN 20 (8-23) mg/dL Creatinine 0.74 (0.60-1.20) mg/dL Glucose 128 H (70-105) mg/dL Calcium 8.8 (8.6-10.3) mg/dL - Attending Attestation patient seen and examined. i have reviewed all labs, imaging, and notes. i have reviewed the plan in detail with the [employer]LECT[employer] PROJECT [employer]. I agree with the above assessment and plan and wish to add the following... POD #4 s/p lap r lee; AF VSS; abd soft appropriately tender; nauseated; tolerating sips; scopolamine patch; okay to advance diet to CLD without restriction; nO need to continue to check CBC unless an indication arises; pulm toileting; will cont to follow
[2018-09-10] MEDS: Isosorbide MONOnitrate (24 HR) 30 MG TAB.ER.24H PO SCH (08:59)
[2018-09-10] MEDS: Pantoprazole 40 MG VIAL IVP SCH (09:00)
--- NOTE | 2018-09-10 10:58 | Internal Med Progress Note ---
Hospitalist Progress Note - Encounter Date of Encounter: 09/10/18 Time of Encounter: 08:45 - Subjective Interval History: Improving nausea and tolerating CLD. Had BM this morning. Denies worsening abdominal pain. No fever/chills. - Exam Vitals: Temp Pulse Resp BP Pulse Ox 97.9 F 105 18 146/58 93 09/10/18 07:38 09/10/18 07:38 09/10/18 07:38 09/10/18 07:38 09/10/18 07:38 Exam: General: A&O x 3, not in distress Cardiovascular:Normal S1 & S2, No JVD. Pulse regular. Lungs: clear to auscultation, no wheezes/rales Abdomen:Soft, mild generalized tenderness without rebound/guarding. Surgical incision appear unremarkable Extremities:No deformity or swelling - Assessment and Plan (1) GI bleed Current Visit: Yes Status: Acute Assessment and Plan: due to bleeding cecal mass seen on colonoscopy on 09/02 path for cecal mass: no evidence of malignancy. Sigmoid polyp turned out to be tubular adenoma CEA normal underwent laparoscopic right hemicolectomy POD #4 post-op mx per surgery, appreciate input follow up on path discussed with surgery today, plan to wean TPN off PT/OT, refuses placement (2) Colonic mass Current Visit: Yes Status: Acute Assessment and Plan: as above (3) CAD (coronary artery disease) Current Visit: Yes Status: Chronic Assessment and Plan: patient reports having 4 stents inserted about 4 years ago. On plavix as outpatient, hold discussed with surgery, will resume ASA continue bb, imdur, statin cardiology input appreciated (4) HLD (hyperlipidemia) Current Visit: Yes Status: Chronic Assessment and Plan: On statin. (5) HTN (hypertension) Current Visit: Yes Status: Chronic Assessment and Plan: continue home meds DVT Prophylaxis: lovenox - Time Spent with Patient Total time spent is greater than 50% in coordination of care (as documented) at patient's floor/unit and/or counseling patient: Plan of Care Discussed with: patient (discussed with surgical team) Internal Medicine: Result - Labs CBC & Chem 7: 09/10/18 03:48 09/10/18 03:48 Labs: Short CBC 09/10/18 Range/Units 03:48 WBC 10.1 (4.3-11.1) K/mcL Hgb 8.7 L (11.5-15.4) g/dL Hct 27.1 L (35.3-44.9) % Plt Count 224 (140-400) K/mcL Neutrophils # 7.1 (1.6-8.9) K/mcL BMP 09/10/18 03:48 Sodium 134 L Potassium 3.9 Chloride 105 Carbon Dioxide 25 BUN 20 Creatinine 0.74 Glucose 128 H Calcium 8.8 - ABG Interpretation ABG results: PT/INR, D-dimer PT 11.5 Seconds (9.4-12.1) 09/06/18 04:50 - VTE Documentation of Mechanical Device: Intermittent pneumatic compression device Consult Discharge Plan - Plan Referrals: Charles Horn MD [Partnered Physician] - 09/14/18 10:15 am (Please follow up as schedule...) NONE,PCP [Primary Care Provider] - () _ (1) GI bleed Qualifiers: GI bleed type/associated pathology: unspecified gastrointestinal hemorrhage type Qualified Code(s): K92.2 - Gastrointestinal hemorrhage, unspecified (3) CAD (coronary artery disease) Qualifiers: Coronary Disease-Associated Artery/Lesion type: [place] artery [place] vs. transplanted heart: [place] heart Associated angina: without angina Qualified Code(s): I25.10 - Atherosclerotic heart disease of [place] coronary artery without angina pectoris (4) HLD (hyperlipidemia) Qualifiers: Hyperlipidemia type: unspecified Qualified Code(s): E78.5 - Hyperlipidemia, unspecified (5) HTN (hypertension) Qualifiers: Hypertension type: unspecified Qualified Code(s): I10 - Essential (primary) hypertension
[2018-09-10] MEDS: Clinimix E 5%-15% SOLUTION 2,000 ML with MVI, adult with vitamin K 10 ML IVC SCH (18:01)
[2018-09-11] MEDS: *HR* Enoxaparin 40 MG/0.4 ML SYRINGE SQ SCH (06:51)
[2018-09-11 07:00] LABS: Basophils # 0.1 K/mcL (0.0-0.2); Basophils % 0.7 %; Eosinophils # 0.3 K/mcL (0.0-0.6); Eosinophils % 3.1 %; Hematocrit 27.4 % (35.3-44.9); Hemoglobin 8.8 g/dL (11.5-15.4); Immature Granulocytes % 0.3 % (0-4); Immature Platelets 2.1 % (1.1-6.1); Lymphocytes # 2.1 K/mcL (0.6-4.6); Lymphocytes % 21.8 %; Mean Corpuscular HGB Conc 32.1 g/dL (31.6-35.5); Mean Corpuscular Hemoglobin 30.6 pg (28.0-33.3); Mean Corpuscular Volume 95.1 fL (83.0-100.0); Mean Platelet Volume 10.1 fL (9.4-12.4); Monocytes # 1.4 K/mcL (0.0-1.3); Monocytes % 14.3 %; Neutrophils # 5.8 K/mcL (1.6-8.9); Platelet Count 236 K/mcL (140-400); Red Blood Count 2.88 M/mcL (3.82-4.97); Red Cell Distribution Width 13.7 % (11.5-14.5); Segmented Neutrophils % 59.8 %
[2018-09-11 07:26] LABS: Alanine Aminotransferase 37 Units/L (7-52); Albumin 3.1 g/dL (3.5-5.7); Albumin/Globulin Ratio 1.2 (1.1-2.2); Alkaline Phosphatase 81 Units/L (34-104); Aspartate Amino Transferase 50 Units/L (13-39); BUN/Creatinine Ratio 20 (6-26); Bilirubin,Total 0.4 mg/dL (0.3-1.0); Blood Urea Nitrogen 15 mg/dL (8-23); Calcium 9.2 mg/dL (8.6-10.3); Carbon Dioxide 26 mEq/L (23-29); Chloride 105 mEq/L (98-107); Globulin 2.5 g/dL (2.4-3.5); Glucose 95 mg/dL (70-105); Osmolality,Calculated 279 (280-300); Potassium 4.4 mEq/L (3.5-5.1); Sodium 134 mEq/L (136-145); Total Protein 5.6 g/dL (6.4-8.9); eGFR For Non-African Americans > 60 (> 60)
[2018-09-11] MEDS: Isosorbide MONOnitrate (24 HR) 30 MG TAB.ER.24H PO SCH (07:43)
--- NOTE | 2018-09-11 08:23 | General Surgery Progress Note ---
<PeymanHali Noe - Last Filed: 09/11/18 08:20> Date of Encounter: 09/11/18 Time of Encounter: 07:00 - Assessment and Plan (1) Colonic mass Current Visit: Yes Status: Acute ate of procedure: 09/06/18 Pre-op diagnosis: bleeding cecal mass Post-op diagnosis: same Procedure: laparoscopic right hemicolectomy Implants: none Complications: none Anesthesia: GETA Local Anesthetics: 0.5% Sensorcaine HCL SubQ (cc) Surgeon: Sen Underwood POD #5 as above; Operative specimen pathology remains pending at this time. Colonoscopy pathologyresults- Cecal mass: noted polyp later fragments of colonic mucosa with lymphoid aggregate, eosinophils, acute and inflammatory changes, hyperplastic as well as regenerative changes, Sigmoid colon: tubular adenoma. Diagnosis comment per surgical path report, no evidence of malignancy is seen in specimen a. If suspicion for malignancy is high additional further evaluation may be considered. She is recovering quite well. Nausea is well controlled and she is tolerating a diet. She is ok to d/c from a surgical standpoint per primary team. Recommend continuing prn zofran and hydrocodone for pain. Follow-up as directed (see d/c plan) (2) Postoperative nausea Current Visit: Yes Status: Acute see above (3) Acute urinary retention Current Visit: Yes Status: Resolved see above (4) Protein-calorie malnutrition, mild Current Visit: Yes Status: Acute see above Subjective Patient reports: no new complaints, pain is less, tolerating a regular diet, voiding w/o difficulty, flatus, bowel movement, afebrile Objective Vital Signs - Last 8 Hours Temp Pulse Resp BP Pulse Ox 09/11/18 06:58 99.2 F 79 16 135/61 92 09/11/18 04:30 98.8 F 69 16 128/56 94 Intake and Output 09/10/18 09/11/18 09/11/18 23:59 07:59 15:59 Intake Total 1330 / 1330 0 / 0 Balance 1330 / 1330 0 / 0 Intake: IV Fluids 1330 / 1330 Clinimix E 5%-15% SOLUTION 2, 1330 / 1330 000 ML @ 60 mls/hr IVC .Q24H JESSICA with M.v.i. Adult 10 ml Rx# :[id number] Oral 0 / 0 Other: Stool Size Moderate Stool Consistency loose Stool Color Brown # Voids 1 # Bowel Movements 1 Weight 54.4 kg Blood Glucose* 127 Patient Weight 09/11/18 23:59 Weight 54.4 kg - General physical appearance no distress, no pain - Eyes normal ocular movement - ENT normal nares, normal mucosa, dentures, atraumatic, normocephalic - Neck Neck exam: trachea midline - Respiratory normal expansion, clear to auscultation - Cardiovascular Cardiovascular exam: Present: NR - Abdomen Abdomen: Present: bowel sounds present, soft, tender (expected postoperative) Hernia: none - Incision Incision: Present: clean and dry, intact - Integumentary no rash - Neurologic normal sensation - Musculoskeletal normal posture - Psychiatric oriented to time, oriented to person, oriented to place, speech is normal, memory intact - Labs 09/11/18 06:45 09/11/18 06:45 Diabetes panel 09/11/18 Range/Units 06:45 Sodium 134 L (136-145) mEq/L Potassium 4.4 (3.5-5.1) mEq/L Chloride 105 (98-107) mEq/L Carbon Dioxide 26 (23-29) mEq/L BUN 15 (8-23) mg/dL Creatinine 0.75 (0.60-1.20) mg/dL Glucose 95 (70-105) mg/dL Calcium 9.2 (8.6-10.3) mg/dL AST 50 H (13-39) Units/L ALT 37 (7-52) Units/L Alkaline Phosphatase 81 (34-104) Units/L Albumin 3.1 L (3.5-5.7) g/dL Calcium panel 09/11/18 Range/Units 06:45 Calcium 9.2 (8.6-10.3) mg/dL Albumin 3.1 L (3.5-5.7) g/dL Pituitary panel 09/11/18 Range/Units 06:45 Sodium 134 L (136-145) mEq/L Potassium 4.4 (3.5-5.1) mEq/L Chloride 105 (98-107) mEq/L Carbon Dioxide 26 (23-29) mEq/L BUN 15 (8-23) mg/dL Creatinine 0.75 (0.60-1.20) mg/dL Glucose 95 (70-105) mg/dL Calcium 9.2 (8.6-10.3) mg/dL Adrenal panel 09/11/18 Range/Units 06:45 Sodium 134 L (136-145) mEq/L Potassium 4.4 (3.5-5.1) mEq/L Chloride 105 (98-107) mEq/L Carbon Dioxide 26 (23-29) mEq/L BUN 15 (8-23) mg/dL Creatinine 0.75 (0.60-1.20) mg/dL Glucose 95 (70-105) mg/dL Calcium 9.2 (8.6-10.3) mg/dL Total Bilirubin 0.4 (0.3-1.0) mg/dL AST 50 H (13-39) Units/L ALT 37 (7-52) Units/L Alkaline Phosphatase 81 (34-104) Units/L Albumin 3.1 L (3.5-5.7) g/dL - VTE Documentation of Mechanical Device: Intermittent pneumatic compression device Consult Discharge Plan - Plan Instructions: Colectomy (DC) Additional Instructions: General Surgical Discharge Instructions 1. No pushing, pulling, or lifting greater than 15 lbs for 4 weeks. 2. You may shower beginning today, but no tub baths, soaking, or swimming for 2 weeks. 3. You may resume driving when you are off narcotics and are safe to react in a car. 4. You can take Tylenol for discomfort or the as needed [place]. Ensure you are eating food if you're taking a narcotic. Taking narcotics on an empty stomach can cause nausea. 5. Take stool softeners (Colace) or a water based laxative (Miralax) while taking narcotics. You may hold for loose stools. 6. Report any fevers greater than 100.5F, increase abdominal discomfort, d rainage that looks like pus, increased redness or pain at the surgical site, or any vomiting. 7. Report any pain in the calves, shortness of breath, or rapid heartbeat. 8. Follow-up in the office as directed. 9. If you were prescribed antibiotics, do not stop them without talking to your provider. Referrals: Charles Horn MD [Partnered Physician] - 09/14/18 10:15 am (Please follow up as schedule...) NONE,PCP [Primary Care Provider] - () Sen Underwood MD [Non-Partnered Physician] - 09/26/18 9:00 am <KjFabianSen J - Last Filed: 09/11/18 08:43> Date of Encounter: 09/11/18 - Assessment and Plan (1) GI bleed Current Visit: Yes Status: Acute Qualifiers: GI bleed type/associated pathology: unspecified gastrointestinal hemorrhage type Qualified Code(s): K92.2 - Gastrointestinal hemorrhage, unspecified Objective Vital Signs - Last 8 Hours Temp Pulse Resp BP Pulse Ox 09/11/18 06:58 99.2 F 79 16 135/61 92 09/11/18 04:30 98.8 F 69 16 128/56 94 Intake and Output 09/10/18 09/11/18 09/11/18 23:59 07:59 15:59 Intake Total 1330 / 1330 0 / 0 Balance 1330 / 1330 0 / 0 Intake: IV Fluids 1330 / 1330 Clinimix E 5%-15% SOLUTION 2, 1330 / 1330 000 ML @ 60 mls/hr IVC .Q24H JESSICA with M.v.i. Adult 10 ml Rx# :[id number] Oral 0 / 0 Other: Stool Size Moderate Stool Consistency loose Stool Color Brown # Voids 1 # Bowel Movements 1 Weight 54.4 kg Blood Glucose* 127 Patient Weight 09/11/18 23:59 Weight 54.4 kg - Labs 09/11/18 06:45 09/11/18 06:45 Diabetes panel 09/11/18 Range/Units 06:45 Sodium 134 L (136-145) mEq/L Potassium 4.4 (3.5-5.1) mEq/L Chloride 105 (98-107) mEq/L Carbon Dioxide 26 (23-29) mEq/L BUN 15 (8-23) mg/dL Creatinine 0.75 (0.60-1.20) mg/dL Glucose 95 (70-105) mg/dL Calcium 9.2 (8.6-10.3) mg/dL AST 50 H (13-39) Units/L ALT 37 (7-52) Units/L Alkaline Phosphatase 81 (34-104) Units/L Albumin 3.1 L (3.5-5.7) g/dL Calcium panel 09/11/18 Range/Units 06:45 Calcium 9.2 (8.6-10.3) mg/dL Albumin 3.1 L (3.5-5.7) g/dL Pituitary panel 09/11/18 Range/Units 06:45 Sodium 134 L (136-145) mEq/L Potassium 4.4 (3.5-5.1) mEq/L Chloride 105 (98-107) mEq/L Carbon Dioxide 26 (23-29) mEq/L BUN 15 (8-23) mg/dL Creatinine 0.75 (0.60-1.20) mg/dL Glucose 95 (70-105) mg/dL Calcium 9.2 (8.6-10.3) mg/dL Adrenal panel 09/11/18 Range/Units 06:45 Sodium 134 L (136-145) mEq/L Potassium 4.4 (3.5-5.1) mEq/L Chloride 105 (98-107) mEq/L Carbon Dioxide 26 (23-29) mEq/L BUN 15 (8-23) mg/dL Creatinine 0.75 (0.60-1.20) mg/dL Glucose 95 (70-105) mg/dL Calcium 9.2 (8.6-10.3) mg/dL Total Bilirubin 0.4 (0.3-1.0) mg/dL AST 50 H (13-39) Units/L ALT 37 (7-52) Units/L Alkaline Phosphatase 81 (34-104) Units/L Albumin 3.1 L (3.5-5.7) g/dL - Attending Attestation patient seen and examined. i have reviewed all labs, imaging, and notes. I have discussed with the PHYSICIAN IN PRIVATE PRACTICE in detail. I agree with the above assessment and plan.
[2018-09-11] MEDS ORDERED: Aspirin Enteric Coated 81 MG Tablet PO SCH (09:00)
[2018-09-11 10:51] VITALS: BP 113/53
[2018-09-11 11:54] LABS: Adenovirus Not Detected (Not Detect); Bordetella Pertussis Not Detected (Not Detect); Chlamydophila pneumoniae Not Detected (Not Detect); Coronavirus 229E Not Detected (Not Detect); Coronavirus HKU1 Not Detected (Not Detect); Coronavirus NL63 Not Detected (Not Detect); Coronavirus OC43 Not Detected (Not Detect); Human Metapneumovirus Not Detected (Not Detect); Human Rhinovirus/Enterovirus Not Detected (Not Detect); Influenza A Subtype 2009 H1 Not Detected (Not Detect); Influenza A Untypeable Not Detected (Not Detect); Influenza B Not Detected (Not Detect); Mycoplasma pneumoniae Not Detected (Not Detect); Parainfluenza Virus 1 Not Detected (Not Detect); Parainfluenza Virus 2 Not Detected (Not Detect); Parainfluenza Virus 3 Not Detected (Not Detect); Parainfluenza Virus 4 Not Detected (Not Detect); Respiratory Syncytial Virus Not Detected (Not Detect)
--- NOTE | 2018-09-11 13:12 | Discharge Summary ---
- NOTES TO OUTPATIENT PROVIDER Notes to Outpatient Provider: Pt with history of CAD, hypertension, hyperlipidemia was admitted for lower BGIT. Required 1U pRBC transfusion during her stay. Was found to have bleeding colonic mass which could not be endoscopically removed. Under lap R hemicolectomy uneventfully on 09/06 and will be discharged home on 09/11. Had 1 episode of temp 100 but without any signs and symptoms of infection/sepsis. PT felt well and comfortable enough to be discharged and was advised to seek medical assistance in case she develops recurrent fever, N/V, chest pain, or productive cough. Orders not resulted at time of discharge: Pending orders 09/06/18 10:47 Surgical Pathology Specimen Routine Date of Encounter: 09/11/18 Time of Encounter: 11:00 - Discharge Diagnosis (1) GI bleed Priority: Primary Status: Acute Qualifiers: GI bleed type/associated pathology: unspecified gastrointestinal hemorrhage type Qualified Code(s): K92.2 - Gastrointestinal hemorrhage, unspecified (2) Colonic mass Priority: Secondary Status: Acute (3) CAD (coronary artery disease) Priority: Secondary Status: Chronic Qualifiers: Coronary Disease-Associated Artery/Lesion type: [place] artery [place] vs. transplanted heart: [place] heart Associated angina: without angina Qualified Code(s): I25.10 - Atherosclerotic heart disease of [place] coronary artery without angina pectoris (4) HLD (hyperlipidemia) Priority: Secondary Status: Chronic Qualifiers: Hyperlipidemia type: unspecified Qualified Code(s): E78.5 - Hyperlipidemia, unspecified (5) HTN (hypertension) Priority: Secondary Status: Chronic Qualifiers: Hypertension type: unspecified Qualified Code(s): I10 - Essential (primary) hypertension Hospital course: Ms. Kuhn is a 82 year old female with history of CAD, hypertension, hyperlipidemia who was admitted for lower BGIT. Required 1U pRBC transfusion during her stay. Was found to have bleeding colonic mass which could not be endoscopically removed. Under lap R hemicolectomy uneventfully on 09/06 and will be discharged home on 09/11. Had 1 episode of temp 100 but without any signs and symptoms of infection/sepsis. PT felt well and comfortable enough to be dischar ged and was advised to seek medical assistance in case she develops recurrent fever, N/V, chest pain, or productive cough. Surgical path report pending at the time of discharge. Discharge discussed with: patient, senior management consultant - Time Spent with Patient Total time spent providing and/or coordinating discharge services: 32 mins - Discharge Medications Prescriptions: Ondansetron ODT [Zofran ODT] 4 mg SL Q4HR PRN 5 Days #30 tab.rapdis PRN Reason: Nausea And Vomiting Acetaminophen [Tylenol] 650 mg PO Q6HR PRN 5 Days #20 tablet PRN Reason: Pain Aspirin Enteric Coated [Aspirin EC] 81 mg PO DAILY #30 tablet. Omeprazole [PriLOSEC] 40 mg PO DAILY@0730 30 Days #60 capsule. Home Medications: Atorvastatin [Lipitor] 80 mg PO HS 09/02/18 [History] Citalopram [CeleXA] 40 mg PO DAILY 09/02/18 [History] Clopidogrel [Plavix] 75 mg PO DAILY 09/02/18 [History] Isosorbide MONOnitrate (24 HR) [Imdur] 30 mg PO DAILY 09/02/18 [History] Metoprolol Tartrate [Lopressor] 25 mg PO BID 09/02/18 [History] Acetaminophen [Tylenol] 650 mg PO Q6HR PRN 5 Days #20 tablet 09/11/18 [Rx] Aspirin Enteric Coated [Aspirin EC] 81 mg PO DAILY #30 tablet. 09/11/18 [Rx] Omeprazole [PriLOSEC] 40 mg PO DAILY@0730 30 Days #60 capsule. 09/11/18 [Rx] Ondansetron ODT [Zofran ODT] 4 mg SL Q4HR PRN 5 Days #30 tab.rapdis 09/11/18 [Rx] Allergies/Adverse Reactions: Allergy/AdvReac Type Severity Reaction Status Date / Time No Known Allergies Allergy Verified 02/09/17 22:48 Date of admission: 09/04/18 16:55 Primary care physician: PCP NONE Consults: 09/01/18 04:50 Consult to Cardiology [CONS] Stat Comment: Consulting Provider: Cardiology Debra Reason for Consult: ischemic EKG changes Time Notified: 04:12 Call Completed: Yes 09/01/18 09:15 Consult to Surgery [CONS] Routine Consulting Provider: Elio Bell Reason for Consult: GI Bleeding Call Completed: Yes 09/03/18 08:16 Consult to Invasive Line Access Team [CONS] Routine Reason for Consult: Picc Line Insertion Line Type: PICC PICC line indications: Parental nutrition 09/03/18 08:17 consult to certified prosthetist [Consult to Nutrition] [CONS] Routine Comment: Please Start TPN 09/04/2018 Consulting Provider: NUTRITION Reason for Dietary Consult: TPN Start and Manage Other:: Total fluid rate (titrate to TPN goal) 09/08/18 09:58 Consult to Physical Therapy [CONS] Routine Comment: Evaluate, develop and implement POC Reason for Consult: s/p lap R hemicolectomy POD2 Does patient have active BEDREST order?: No Is patient medically & hemodynamically stable?: Yes - Constitutional Vitals: Temp Pulse Resp BP Pulse Ox 98.8 F 71 18 113/53 97 09/11/18 10:50 09/11/18 10:50 09/11/18 10:50 09/11/18 10:50 09/11/18 10:50 Exam: General: A&O x 3, not in distress Cardiovascular:Normal S1 & S2, No JVD. Pulse regular. Lungs: clear to auscultation, no wheezes/rales Abdomen:Soft, mild generalized tenderness without rebound/guarding. Surgical incision appear unremarkable Extremities:No deformity or swelling - Patient Status Disposition: Home, Self-Care Condition: Good Functional capacity at discharge: independent ambulation Overall status at discharge: patient is progressing back to baseline - Discharge Instructions Instructions: Colectomy (DC), Chronic Hypertension (DC) Follow Up With: Sen Underwood MD [Non-Partnered Physician] - 09/26/18 9:00 am Charles Horn MD [Partnered Physician] - 09/14/18 10:15 am (Please follow up as schedule...) NONE,PCP [Primary Care Provider] - () Additional Instructions: General Surgical Discharge Instructions 1. No pushing, pulling, or lifting greater than 15 lbs for 4 weeks. 2. You may shower beginning today, but no tub baths, soaking, or swimming for 2 weeks. 3. You may resume driving when you are off narcotics and are safe to react in a car. 4. You can take Tylenol for discomfort or the as needed [place]. Ensure you are eating food if you're taking a narcotic. Taking narcotics on an empty stomach can cause nausea. 5. Take stool softeners (Colace) or a water based laxative (Miralax) while taking narcotics. You may hold for loose stools. 6. Report any fevers greater than 100.5F, increase abdominal discomfort, drainage that looks like pus, increased redness or pain at the surgical site, or any vomiting. 7. Report any pain in the calves, shortness of breath, or rapid heartbeat. 8. Follow-up in the office as directed. 9. If you were prescribed antibiotics, do not stop them without talking to your provider. Started on ASA instead of plavix per cardiology recs. - Diet and Activity Activity: resume usual activities as tolerated Diet: other (diet per surgery) - VTE Documentation of Mechanical Device: Intermittent pneumatic compression device
== END 2018-09-11 18:04 | disposition home or self-care (01) | DRG 330 ==
LOC: EMEROOARM 01:55 → 2ANU 01:55 → SUATTDRO 05:09 → 2ANU 05:57
PROVIDERS: ADMIT Family Medicine; ATTEND Internal Medicine